=== PATIENT | female | born 1930 | race Caucasian/White ===

== ENCOUNTER 2017-07-09 16:12 | Inpatient (IN) | payer OTHER, MEDICARE ==
[~2017-07-09] VITALS: Ht 154.9 cm; Wt 101.6 kg
[~2017-07-09 16:12] MED LIST: ALLOPURINOL300 M1 PO; ASPIRIN EC325 MG PO; ATORVASTATIN CA10 MG PO; ATORVASTATIN CA40 MG PO; AUGMENTIN 500-1 EACH PO; AUGMENTIN 875875 MG PO; CEPHALEXIN500 M1 PO; CIPROFLOXACIN500 M1 PO; COLCRYS0.6 M1 PO; ECOTRIN81 MG PO; Ecotrin PO; FUROSEMIDE20 M1 PO; GLIPIZIDE ER10 M1 PO; GLIPIZIDE ER5 MG PO; JANUVIA 100MG100 MG PO; KEFLEX500 MG PO; LASIX20 MG PO; LASIX40 MG PO; LIPITOR80 M1 PO; LIPITOR80 MG PO; LOPRESSOR 25MG25 MG PO; METFORMIN HCL500 M2 PO; NORVASC 10MG10 MG PO; PLAVIX 75MG TAB75 MG PO; PLAVIX75 M1 PO; PRINIVIL 5MG5 MG PO; SPIRONOLACTONE25 M1 PO; TOPROL XL25 M1 PO; TRAMADOL HCL50 M1 PO; TRAMADOL50 MG PO; TYLENOL325 M1 PO; ULTRAM(MONOGRAP50 MG PO; URICALM PO; VALSARTAN80 M1 PO; VITAMIN B-122000 MC1 PO; VITAMIN B121000 MCG PO; VITAMIN D31000 IU PO; VITAMIN D32000 UNI1 PO
--- NOTE | 2017-07-09 17:23 | CT SCAN REPORT ---
EXAMINATION: CT HEAD WITHOUT CONTRAST CLINICAL INFORMATION: Fall and hit head. COMPARISON: CT scan of the head 05/15/2017. TECHNIQUE: Contiguous axial imaging was performed from the skull base to vertex without intravenous administration of contrast. DLP: 617.53 mGy-cm FINDINGS: There is no evidence of acute intracranial hemorrhage or territorial infarction. No abnormal mass effect or midline shift is seen. Cuello to white matter differentiation is well preserved. No extra-axial fluid collections are identified. There is commensurate prominence of the ventricles and sulci consistent with moderate diffuse volume loss. There are extensive areas of low attenuation in the periventricular and subcortical white matter, consistent with chronic microvascular ischemic changes. There is encephalomalacia in the right occipital lobe consistent with sequelae of remote infarct. There are areas of low attenuation in the basal ganglia bilaterally consistent with lacunar infarcts. There have been bilateral lens extractions. There are severe degenerative changes of the left temporomandibular joint. There are atheromatous calcifications of the cavernous internal carotid arteries. There are no acute osseous findings. There is a scar in the high right scalp, unchanged. The mastoid air cells and visualized paranasal sinuses are well-aerated. IMPRESSION: 1. There are no acute fractures or bleeds. 2. There is diffuse volume loss and there are extensive chronic microvascular ischemic changes. An area of more acute ischemia cannot be excluded on the basis of this study. 3. 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 There are lacunar infarcts.
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
--- NOTE | 2017-07-09 18:46 | RADIOLOGY REPORT ---
EXAMINATION: RIGHT KNEE 3 VIEWS CLINICAL INFORMATION: Right knee pain after fall. Swelling. COMPARISON: 05/16/2017. TECHNIQUE: AP, lateral, oblique views of the right knee were obtained. FINDINGS: There are no discernible fractures. There is soft tissue swelling anterior to the proximal tibia. There is no knee joint effusion. There is medial and lateral compartment chondrocalcinosis. There is mild narrowing to the medial compartment. IMPRESSION: Soft tissue swelling without discernible fracture.
--- NOTE | 2017-07-09 19:02 | CT SCAN REPORT ---
EXAMINATION: CT CERVICAL SPINE WITHOUT CONTRAST CLINICAL INFORMATION: Pain after fall. COMPARISON: April 2017. TECHNIQUE: Contiguous helical images of the cervical spine were obtained without IV contrast. Multiplanar reconstructions were performed. FINDINGS: The cervical vertebra are in normal alignment. There is mild disc height loss within the lower cervical spine. Disc heights and vertebral heights are otherwise well-preserved. There are no fractures. There is no prevertebral soft tissue swelling. There is no cervical lymphadenopathy. Again identified is a left-sided thyroid macrolobulated thyroid nodule with multiple calcifications. The visualized base of the brain is unremarkable. The visualized lung apices are clear. IMPRESSION: No evidence for acute injury. Mild degenerative change without evidence of acute injury.
--- NOTE | 2017-07-09 19:28 | RADIOLOGY REPORT ---
EXAMINATIONS: PELVIS 1 VIEW AND RIGHT HIP 2 VIEWS CLINICAL INFORMATION: Pain after fall. COMPARISON: None. TECHNIQUE: A supine view of the pelvis is provided. AP neutral and frog-leg lateral views of the right hip are provided. FINDINGS: There are no fractures. Both femoral heads are seated within well-formed acetabula. There is mild medial right hip joint space narrowing. No dysplastic changes are identified. The visualized bowel gas pattern is unremarkable. IMPRESSION: Mild degenerative change without evidence of acute injury.
--- NOTE | 2017-07-09 19:30 | RADIOLOGY REPORT ---
EXAMINATION: RIGHT ANKLE 3 VIEWS CLINICAL INFORMATION: Right ankle pain. COMPARISON: None. TECHNIQUE: AP, lateral, oblique views of the right ankle were obtained. FINDINGS: There is soft tissue swelling about the lateral malleolus. There are no acute fractures. There is no ankle joint effusion. There is a small plantar surface calcaneal spur. IMPRESSION: Soft tissue swelling. No acute fractures. Small calcaneal spur.
[2017-07-09 21:14] LABS: ABSOLUTE BASOPHIL COUNT 0 /CUMM (0.0-0.2); ABSOLUTE EOSINOPHIL COUNT 0.1 /CUMM (0.0-0.7); ABSOLUTE GRANULOCYTE CT 6.9 /CUMM (1.4-6.5); ABSOLUTE LYMPH COUNT 1.9 /CUMM (1.2-3.4); ABSOLUTE MONOCYTE COUNT 0.6 /CUMM (0.10-0.60); BASOPHIL % 0.3 % (0.0-2.0); EOSINOPHIL % 0.6 % (0-5); GRANULOCYTE % 73.2 % (42.2-75.2); HEMATOCRIT 33.5 % (37-47); MEAN CORPUSCULAR HGB 28.6 PG (27.0-31.0); MEAN CORPUSCULAR HGB CONC 32.1 G/DL (33.0-37.0); MEAN CORPUSCULAR VOLUME 89.2 FL (81.0-99.0); MEAN PLATELET VOLUME 7.7 FL (7.4-10.4); PLATELET COUNT 291 /CUMM (130-400); RBC DISTRIBUTION WIDTH 16.1 % (11.5-14.5); RED BLOOD CELL CT 3.75 /CUMM (4.20-5.40); WHITE BLOOD CELL COUNT 9.4 /CUMM (4.8-10.8)
[2017-07-09] MEDS ORDERED: METOPROLOL SUCC25 M1 PO (21:21)
[2017-07-09] MEDS ORDERED: ULTRAM50 M1 PO (21:24)
[2017-07-09] MEDS ORDERED: ASPIRIN81 M4 PO (21:25)
--- NOTE | 2017-07-09 22:15 | History & Physical ---
Ashu LEHMAN,[facility] 07/09/17 2665: General Information and HPI MD Statement: I have seen and personally examined BAL VARGAS and documented this H &P. The patient is a 86 year old F who presented with a patient stated chief complaint of [fall]. Source of Information: patient, family Exam Limitations: no limitations History of Present Illness: The patient is 86-year-old female with past medical history of hyperlipidemia, hypertension, diabetes mellitus, diastolic heart failure (EF 65% in 2016) and COPD. The patient presented to [facility] [facility] ED on 07/09 with presenting complaint of witnessed mechanical fall. As per patient and her daughter she was in usual state of health until last night around 9:30 PM. The patient was walking using walker when she suddenly hit the door and injured R side of her face. Later she fell on ground. In the process, the patient hit back of her head, side of her head, and right knee and right hip. The patient felt too weak to get up or walk The daughter called her neighbor and his son who picked her up and help with her to bed. Her aid came in the morning and try to get her up to walk but she was unable to do so, prompting a visit to ED. The patient did not lose consciousness. There was no jerking movement of the body. No tongue bite no urinary or fecal incontinence. No prodrome, lightheadedness nausea or palpitations/chest pain. Patient's daughter witnessed the whole episode. She is currently complaining of diffuse pain all over her body farhat in R knee. On review of system patient has bilateral lower extremity swelling and reports right knee swelling as well. Allergies/Medications Allergies: Coded Allergies: NO KNOWN ALLERGIES (06/03/12) Home Med list Allopurinol 300 MG TABLET 1 TAB PO DAILY GOUT (Reported) Aspirin (Aspirin*) 81 MG TAB.CHEW 1 TAB PO DAILY PRN HEART (Reported) Atorvastatin Calcium (Lipitor) 80 MG TABLET 1 TAB PO DAILY CHOLESTEROL ( Reported) Clopidogrel Bisulfate (Plavix) 75 MG TABLET 1 TAB PO DAILY BLOOD THINNER ( Reported) Furosemide 20 MG TABLET 1 TAB PO DAILY PRN WATER PILL (Reported) Glipizide (Glipizide ER) 10 MG TAB.ER.24 1 TAB PO DAILY DIABETES (Reported) Reason to Stop at ADM: ON ISS Metformin HCl (Metformin HCl ER) 500 MG TAB.ER.24 2 TAB PO BID DIABETES ( Reported) Reason to Stop at ADM: ON ISS Metoprolol Succinate 25 MG TAB 0.5 TAB PO DAILY HEART (Reported) Tramadol HCl (Ultram) 50 MG TABLET 1 TAB PO BIDP PRN JOINT PAIN (Reported) Valsartan 80 MG TABLET 1 TAB PO DAILY BP (Reported) Past History Travel History Traveled to [place] past 21 day No Medical History Neurological: NONE EENT: NONE Cardiovascular: hypertension, hyperlipidemia, diastolic CHF Respiratory: COPD Gastrointestinal: NONE Hepatic: NONE Renal: urinary incontinence Musculoskeletal: NONE Psychiatric: NONE Endocrine: diabetes THYROIDECTOMY Blood Disorders: NONE Cancer(s): NONE COMMERCIAL SINGER/Reproductive: NONE History of MRSA: No History of VRE: No History of CDIFF: No Surgical History Surgical History: cholecystectomy, THYROIDECTOMY Past Family/Social History Family History Relations & Conditions if any SISTER FH: diabetes mellitus MOTHER FH: cancer FATHER FH: diabetes mellitus FH: heart disease FH: HTN (hypertension) Psychosocial History Where do you live? Home Who Do You Live With? 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 no Functional Ability ADLs Independent: dressing, eating, toileting. Needs Assist: bathing. Ambulation: walker IADLs Needs Assist: shopping, housework, food prep, transportation. Review of Systems Review of Systems Constitutional: Reports: no symptoms. EENTM: Reports: no symptoms. Cardiovascular: Denies: chest pain, orthopena. Respiratory: Reports: no symptoms. GI: Denies: abdominal pain, bloating. Genitourinary: Reports: no symptoms. Musculoskeletal: Reports: back pain, joint pain, joint swelling, muscle pain, muscle stiffness, neck pain. Skin: Reports: no symptoms. Neurological/Psychological: Reports: no symptoms. Exam & Diagnostic Data Last 24 Hrs of Vital Signs/I&O Vital Signs Date Time Temp Pulse Resp B/P B/P Pulse O2 O2 Flow FiO2 Mean Ox Delivery Rate 07/09 2141 98.5 87 19 191/71 99 Room Air 07/09 1622 97.5 82 18 159/75 Room Air Physical Exam General Appearance Alert, Oriented X3, Cooperative Skin No Rashes, No Breakdown HEENT Mucous Membr. moist/pink, bruise on R cheek under the eye Cardiovascular Normal S1, Normal S2, systolic murmur Lungs Clear to Auscultation, Normal Air Movement Abdomen Normal Bowel Sounds, Soft Neurological Normal Speech Extremities R knee swelling limited ROM Vascular Normal Pulses Body Front and Back (Adult) 1) knee swelling Last 24 Hrs of Labs/Festus: Laboratory Tests 07/09/170: Urine Color YEL, Urine Clarity CLEAR, Urine pH 6.0, Ur Specific [place] 1.025, Urine Protein NEG, Urine Ketones NEG, Urine Nitrite NEG, Urine Bilirubin NEG, Urine Urobilinogen 0.2, Ur Leukocyte Esterase NEG, Ur Microscopic EXAM NOT REQUIRED, Urine Hemoglobin NEG, Urine Glucose NEG 07/09/172109: Anion Gap 14, Estimated GFR > 60, BUN/Creatinine Ratio 20.0, Glucose 104 H, Calcium 8.5, Magnesium 1.0 L, Total Bilirubin 0.9, AST 25, ALT 36, Alkaline Phosphatase 76, Total Protein 6.8, Albumin 4.1, Globulin 2.7, Albumin/Globulin Ratio 1.5, CBC w Diff NO MAN DIFF REQ, RBC 3.75 L, MCV 89.2, MCH 28.6, RDW 16.1 H, MPV 7.7, Gran % 73.2, Lymphocytes % 19.9 L, Monocytes % 6.0, Eosinophils % 0.6, Basophils % 0.3, Absolute Granulocytes 6.9 H, Absolute Lymphocytes 1.9, Absolute Monocytes 0.6, Absolute Eosinophils 0.1, Absolute Basophils 0, PUBS MCHC 32.1 L Diagnostic Data Other Results CT HEAD WO IV CONTRAST 1. There are no acute fractures or bleeds. 2. There is diffuse volume loss and there are extensive chronic microvascular ischemic changes. An area of more acute ischemia cannot be excluded on the basis of this study. 3. 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 There are lacunar infarcts. CT CERVICAL SPINE WITHOUT CONTRAST IMPRESSION: No evidence for acute injury. Mild degenerative change without evidence of acute injury. XRY-HIP 2-3 VIEWS, RIGHT IMPRESSION: Mild degenerative change without evidence of acute injury. XRY-KNEE COMPLETE RIGHT IMPRESSION: Soft tissue swelling without discernible fracture. XRY-ANKLE 3 OR MORE VIEWS R IMPRESSION Soft tissue swelling. No acute fractures. Small calcaneal spur. Assessment/Plan Assessment: The patient is 86-year-old female with past medical history of hyperlipidemia, hypertension, diabetes mellitus, diastolic heart failure (EF 65% in 2016) and COPD. The patient presented to [facility] [facility] ED on 07/09 with presenting complaint of witnessed mechanical fall. -VS WNL -Pertinent labs /H 10.8/33 stable, potassium 3.2 magnesium 1 UA clean -Imaging studies dictated above Patient is being admitted to general medicine floor and was being treated and evaluated for following conditions #Witnessed mechanical fall Patient is coming with fall. No syncope, chest pain, palpitations, seizure. Most likely mechanical. -Physical therapy evaluation -Case management -Pain pathway -Ultrasound of the right knee, consider CT and orthopedic consult if worsening of swelling #Hypokalemia and hypomagnesemia -Monitor BP and replete aggressively #Diabetes mellitus -Accu-Cheks hold oral anti-diabetic medication insulin sliding scale #Chronic medical conditions hypertension, hyperlipidemia, TIA continue metoprolol, losartan Lipitor and Plavix FC/DVT prophylaxis with Lovenox/diabetic diet As Ranked By This Provider Problem List: 1. Fall Core Measures/Misc (03/08) Acute Coronary Syndrome ACS Diagnosis: No Congestive Heart Failure Congestive Heart Failure Diagnosis No Cerebrovascular Accident CVA/TIA Diagnosis: No VTE (View Protocol) VTE Risk Factors Age>40 No Mechanical VTE Prophylaxis d/t N/A MechProphylax Ordered No VTE Pharm Prophylaxis d/t NA PharmProphylax ordered Sepsis (View protocol) Sepsis Present: No Shane Garcia 07/09/17 2301: Resident Review Statement Resident Statement: discussed with sourcing intern Other Findings: 86-year-old with past medical history of diabetes type 2, hypertension, gout and TIA presented to ER after having a mechanical fall last night. Daughter is at bedside. According to patient she was trying to walk with walker, tripped and fell down. She denies any dizziness or lightheadedness, chest pain/discomfort, palpitations before fall. She hit her head, right side of face and fell on her right knee. She did not loose consciousness. She felt dizzy after hitting her head. Currently she is complaining of right knee and back pain. She also complains of on and off burning micturition. Denies any fever, chills. Other review of systems negative. Upon arrival to ER temperature was 97.5, pulse 82, respiratory rate 18, blood pressure 159/75 and oxygen saturation 99% on room air. Pertinent physical exam findings: She is alert, awake and oriented. Small bruise on the right side of her face. Heart regular rate and rhythm with a systolic murmur grade 4/6. Lungs clear. Tenderness on palpation of lumbar and cervical spine. No obvious bruise or overlying skin changes. Right knee is swollen, bruised, warm and tender. Restricted range of motion due to pain. Pertinent labs her H&H 10.8/33.5, potassium 3.2, magnesium 1. UA normal Head CT did not show any acute fractures or bleeds. Extensive chronic microvascular ischemic changes. Cervical spine CT did not show any evidence of acute injury. Right hip x-ray showed mild degenerative changes without evidence of acute injury Right knee x-ray showed soft tissue swelling without Fracture. Right ankle x-ray showed soft tissue swelling and no acute fracture Problem list 1. Mechanical fall and physical deconditioning 2. Electrolyte abnormalities Plan * Admission to general med * Vitals every shift * Replete electrolytes and check levels tomorrow * Pain management with IV Tylenol and tramadol * Will consider Doppler venous ultrasound of right lower extremity to rule out DVT * Physical therapy evaluation and treatment in a.m. * We'll continue all home medication except glipizide and metformin * Accu-Cheks. NovoLog sliding scale before each meal * DVT prophylaxis * Regular diet * Full code Soto LEHMAN, [facility] 07/09/17 2353: Attending MD Review Statement Attending Statement Attending MD Statement: examined this patient, discuss w/resident/PA/ROUTER MACHINE OPERATOR, agreed w/resident/PA/ROUTER MACHINE OPERATOR, discussed with family, reviewed images, amended to note Attending Assessment/Plan: 86 yo F with h/o HTN, T2DM, TIA, diastolic CHF, is brought in from home after a mechanical fall last night. Daughter at bedside provides history. Patient was walking with her walker when she tripped and fell face forward and broke the fall on her right knee. Daughter witnessed the fall. Patient had head strike and reports mild dizziness post fall, no LOC. Daughter had her friends get patient off the floor to the bed overnight. However, this morning, visiting nurse attempted to walk but she was a max assist and had difficulty ambulating. She c/ o diffuse pains over her right half of face, right knee and back pain. Of note, patient c/o dysuria intermittently over past 2 weeks. Denies hematuria or urinary frequency, she is incontinent. Vitals stable. Exam: AAO, Bruise noted to right infra-orbital and maxillary region, bruise with diffuse swelling of the right knee is noted compared to left knee. Right knee is tender with limited ROM. Otherwise unremarkable exam. Labs: K 3.2, Mag 1.0, UA neg. Head CT: chronic lacunar infarcts and posterior cerebral artery infarct. Cervical spine: no injury. Right knee Xray: soft tissue swelling without discernible fracture, medial and lateral compartment chondrocalcinosis. Right ankle Xray: soft tissue swelling, no fracture. Right hip Xray: mild degenerative change. EKG: Sinus rhythm, no acute changes. Echo (2017): EF 60-65%. Assessment and plan: 1. Mechanical fall 2. Right knee pain and swelling 3. Gait instability, inability to ambulate 4. Hypomagnesemia, hypokalemia 5. Type 2 diabetes - Admit to general medicine - Fall precautions - Pain management with IV tylenol and PO tramadol - No opiate medications - Obtain right knee/ lower extremity ultrasound to rule out DVT and assess for any knee effusion or collection - If right knee swelling worsens, consider CT imaging and Ortho consult - PT eval, eventual placement - Replete electrolytes Mag > 2.0 and K > 4.0 - Although patient c/o intermittent dysuria, her UA is clear, will watch off antibiotics. DVT ppx Lovenox. Full code
--- NOTE | 2017-07-09 23:04 | Admission Certification ---
Admission Certification Certification Statement - As attending physician, I certify that at the time of - admission, based on clinical presentation, severity of - symptoms, need for further diagnostic testing and - therapeutic interventions, and risk of adverse outcomes - without in-hospital treatment, in my clinical assessment, - this patient requires an acute hospital stay for a minimum - of two nights or longer. I have also considered psychsocial - factors such as support system, advanced age, financial - issues, cognitive issues, and failed out-patient treatments, - past re-admission history, safety of patient, and lack of - compliance as applicable. Specific rationale supporting this admission is: Fall, right knee pain, gait instability.
[2017-07-09 23:35] VITALS: BP 128/78
[2017-07-10 06:09] VITALS: BP 144/78
--- NOTE | 2017-07-10 11:45 | ULTRASOUND REPORT ---
EXAMINATION: US TRIPLEX LOWER EXTREMITY, RIGHT CLINICAL INFORMATION: Right lower extremity swelling COMPARISON: 04/14/2017 TECHNIQUE: Color-flow triplex imaging with spectral analysis and compression Doppler were performed on the lower extremity. FINDINGS: Respiratory variation, normal compression and augmented flow are noted throughout the lower extremity. The visualized common femoral vein, superficial femoral vein, profunda femoral vein, popliteal vein and midcalf peroneal and posterior tibial venous segments show no evidence of deep venous thrombosis. A Munoz's cyst is present. IMPRESSION: No evidence of deep venous thrombosis involving the lower extremity. A Munoz's cyst is present.
--- NOTE | 2017-07-10 12:51 | PN- Housestaff ---
Kimo LEHMAN,[facility] 07/10/17 1251: Subjective Follow-up For: Mechanical fall Subjective: No acute events overnight. Patient was sleeping comfortably. States she has no pain from her fall. Review of Systems Constitutional: Reports: no symptoms. Cardiovascular: Reports: no symptoms. Respiratory: Reports: no symptoms. Gastrointestinal: Reports: no symptoms. Genitourinary: Reports: no symptoms. Musculoskeletal: Reports: see HPI. Objective Last 24 Hrs of Vital Signs/I&O Vital Signs Date Time Temp Pulse Resp B/P B/P Pulse O2 O2 Flow FiO2 Mean Ox Delivery Rate 07/10 1452 98.2 76 20 100/62 94 Room Air 07/10 1230 Room Air 07/10 0927 84 140/76 07/10 0926 84 140/76 07/10 0609 98.5 89 20 144/78 93 Room Air 07/09 2335 97.8 78 20 128/78 95 Room Air 07/09 2246 97.9 78 20 165/79 97 Intake & Output 07/10 1600 07/10 0800 07/10 0000 Intake Total 600 500 Output Total 300 100 Balance 300 500 -100 Intake, IV 20 Intake, Oral 600 480 Number 0 Bowel Movements Output, Urine 300 100 Patient 225 lb Weight Weight Bed scale Measurement Method Physical Exam General Appearance: Alert, Cooperative, No Acute Distress Cardiovascular: systolic murmur Lungs: Clear to Auscultation, Normal Air Movement Abdomen: Normal Bowel Sounds, Soft, No Tenderness Extremities: RLE slightly warmer than L, RLE tender to palpation cap refill <2 seconds Vascular: 2+ radial pulses Current Medications: Current Medications Sig/[place] Start time Last Medication Dose Route Stop Time Status Admin Acetaminophen 1,000 MG Q6P PRN 07/090 AC IV Allopurinol 300 MG DAILY 07/10 1000 AC 07/10 PO 0927 Aspirin 81 MG DAILY PRN 07/10 1930 DC PO Atorvastatin Calcium 80 MG 1700 07/10 1700 AC 07/10 PO 1642 Clopidogrel Bisulfate 75 MG DAILY 07/10 1000 AC 07/10 PO 09 Enoxaparin Sodium 40 MG DAILY 07/10 1000 AC 07/10 SC 09 Furosemide 20 MG DAILY PRN 07/10 1930 DC PO Insulin Aspart 0 TIDAC 07/10 0800 AC SC Losartan Potassium 50 MG DAILY 07/10 1000 AC 07/10 PO 09 Magnesium Chloride 64 MG ONCE ONE 07/10 1900 DC 07/10 PO 07/10 190 2106 Magnesium Oxide 400 MG BID 07/10 1446 DC 07/10 PO 07/10 2200 210 Metoprolol Succinate 12.5 MG DAILY 07/10 1000 AC 07/10 PO 0927 Potassium Chloride 40 MEQ ONCE ONE 07/10 1500 DC 07/10 PO 07/10 1501 1643 Potassium Chloride 0 .STK-MED ONE 07/09 2303 DC PO Tramadol HCl 50 MG Q6 PRN 07/09 2200 AC 07/10 PO 1149 Last 24 Hrs of Lab/Festus Results Last 24 Hrs of Labs/Mics: Laboratory Tests 07/10/17 0715: Anion Gap 13, Estimated GFR > 60, BUN/Creatinine Ratio 16.7, Magnesium 1.1 L Assessment/Plan Assessment: The patient is 86-year-old female with past medical history of hyperlipidemia, hypertension, diabetes mellitus, diastolic heart failure (EF 65% in 2016) and COPD. The patient presented to [place] ED on 07/09 with presenting complaint of witnessed mechanical fall. #Witnessed mechanical fall Ct head reveals old uptwist spinner infart and lacunar infarcts Ct cervical spine negative for any acute fracutres. R knee XR and ankle xray reveal soft tissue swelling Hip xray negative for any acute fractures RLE veouns doppler : No evidence of deep venous thrombosis involving the lower extremity. A Munoz's cyst is present. -Physical therapy recommends STR -Pain control #Hypokalemia and hypomagnesemia K 3.2 -> 3.5 Mg 1.0 -> 1.1 -Monitor BP and replete as needed #Diabetes mellitus -Accu-Cheks hold oral anti-diabetic medication insulin sliding scale #Chronic medical conditions hypertension, hyperlipidemia, TIA -continue metoprolol, losartan Lipitor and Plavix FC/DVT prophylaxis with Lovenox/diabetic diet Problem List: 1. Hypomagnesemia 2. Hypokalemia 3. Fall Pain Ratin Pain Location: none Pain Goal: Pain 4 or less Pain Plan: pain pathway Tomorrow's Labs & Rationales: cbc bep mg NakulValentin barraza 07/10/17 1341: Attending Review Statement Attending Statement Attending MD Statement: examined this patient, discuss w/resident/PA/PHYS THERAPIST, agreed w/resident/PA/PHYS THERAPIST, discussed with family, reviewed EMR data (avail), discussed with nursing, discussed with case mgmt, reviewed images, amended to note Attending Assessment/Plan: Patient here for mechanical fall and general physical deconditioning. PT eval recommended STR. Patient no acute fracture. Patient had hypokalemia on admission which got better this morning. Cont current care..
--- NOTE | 2017-07-10 13:46 | Discharge Summary ---
Visit Information Visit Dates Admission Date: 07/09/17 Discharge Date: 07/15/17 Hospital Course Course Attending Physician: Valentin Mota MD Primary Care Physician: Ruthy Nelson MD.[facility] Course: 86 yo F with h/o HTN, T2DM, TIA, diastolic CHF, is brought in from home after a mechanical fall last night. Daughter at bedside provides history. Patient was walking with her walker when she tripped and fell face forward and broke the fall on her right knee. Daughter witnessed the fall. Patient had head strike and reports mild dizziness post fall, no LOC. Daughter had her friends get patient off the floor to the bed overnight. However, this morning, visiting nurse attempted to walk but she was a max assist and had difficulty ambulating. She c/ o diffuse pains over her right half of face, right knee and back pain. Of note, patient c/o dysuria intermittently over past 2 weeks. Denies hematuria or urinary frequency, she is incontinent. Vitals stable. Exam: AAO, Bruise noted to right infra-orbital and maxillary region, bruise with diffuse swelling of the right knee is noted compared to left knee. Right knee is tender with limited ROM. Otherwise unremarkable exam. Labs: K 3.2, Mag 1.0, UA neg. Head CT: chronic lacunar infarcts and posterior cerebral artery infarct. Cervical spine: no injury. Right knee Xray: soft tissue swelling without discernible fracture, medial and lateral compartment chondrocalcinosis. Right ankle Xray: soft tissue swelling, no fracture. Right hip Xray: mild degenerative change. Head CT did not show any acute fractures or bleeds. Extensive chronic microvascular ischemic changes. Cervical spine CT did not show any evidence of acute injury. EKG: Sinus rhythm, no acute changes. Echo (2017): EF 60-65%. Assessment and plan: 1. Mechanical fall 2. Dysuria with positive urien cultures for gram positivie cocci 3. Gait instability, inability to ambulate 4. Hypomagnesemia, hypokalemia - resolved 5. Type 2 diabetes Admitted to general medicine floor Witnessed Mechanical fall Probably secondary to gait instability and deconditioning. PT evaluated and recommended STR. As she had significant bruising and pain in the right knee/ ankle region, provided with IV tylenol and PO tramadol (avoided opiates given elderly). Xray ruled out acute fractures. Lethargy/drowsiness in the morning Patient is lethargic over weekend and found to be unable to sleep well during night making her more drowsy during day time. Another reason could be urinary infection. Family reports that she is even altered at baseline usually. Electrolyte abnormalities - Hypokalemia and hypomagnesemia Repleted. History of diastolic failure Losartan 50mg daily (valsartan 80 at home), metoprolol succinate 12.5mg daily, furosemide 20mg daily. Urinary tract infection She had Dysuria with urine cultures growing Gram positive cocci.As she is symtomatic and cultures were positive - started on augementin for a total of 7 days after a single dose of ceftriaxone. History of TIA Continue ASA 81mg, plavix, Atrovastatin 80mg DM - type 2 Accuchecks with insulin sliding scale. Sugars controlled - holding metformin and glipizide DVT prophylaxis SC lovenox Code status full code Complications: None Allergies: Coded Allergies: NO KNOWN ALLERGIES (06/03/12) Significant Procedures: Head CT IMPRESSION: 1. There are no acute fractures or bleeds. 2. There is diffuse volume loss and there are extensive chronic microvascular ischemic changes. An area of more acute ischemia cannot be excluded on the basis of this study. 3. 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 There are lacunar infarcts. Knee Xray IMPRESSION: Soft tissue swelling without discernible fracture. Ankle Xray IMPRESSION: Soft tissue swelling. No acute fractures. Small calcaneal spur. Cervical spine CT IMPRESSION: No evidence for acute injury. Mild degenerative change without evidence of acute injury. Hip Xray IMPRESSION: Mild degenerative change without evidence of acute injury. Venous doppler study IMPRESSION: No evidence of deep venous thrombosis involving the lower extremity. A Munoz's cyst is present. Pertinent Lab Results: as above Disposition Summary Disposition Principal Diagnosis: Mechanical fall Additional Diagnosis: Gait instability, inability to ambulate Electrolyte abnormalities - Hypomagnesemia, hypokalemia Type 2 diabetes Urine cultures positive for gram positive cocci Discharge Disposition: short term rehab Discharge Instructions General Discharge Information Code Status: Full Code Patient's Diet: Regular diet Patient's Activity: as tolerated Follow-Up Instructions/Appts: Please follow up with your PCP in a week Medications at Discharge Discharge Medications: Continue taking these medications: Metformin HCl (Metformin HCl ER) 500 MG TAB.ER.24 2 Tablet ORAL TWICE DAILY Instructions: Reason to Stop at ADM: ON ISS Comments: NOT GIVEN IN HOSPITAL Allopurinol (Allopurinol) 300 MG TABLET 1 Tablet ORAL DAILY Comments: LAST GIVEN 07/15/17 @ 1200 Valsartan (Valsartan) 80 MG TABLET 1 Tablet ORAL DAILY Qty = 30 Comments: Last Taken: 04/17/17 Time: 9AM PT GIVEN VALSARTAN Glipizide (Glipizide ER) 10 MG TAB.ER.24 1 Tablet ORAL DAILY Qty = 90 Instructions: Reason to Stop at ADM: ON ISS Comments: NOT GIVEN IN HOSPITAL Atorvastatin Calcium (Lipitor) 80 MG TABLET 1 Tablet ORAL DAILY Qty = 30 Comments: LAST GIVEN 07/14/17 @ 1700 Furosemide (Furosemide) 20 MG TABLET 1 Tablet ORAL DAILY as needed for WATER PILL Qty = 15 Comments: Last Taken: 04/14/17 Time: 9PM Clopidogrel Bisulfate (Plavix) 75 MG TABLET 1 Tablet ORAL DAILY Comments: LAST GIVEN 07/15/17 @ 1200 Metoprolol Succinate (Metoprolol Succinate) 25 MG TAB 0.5 Tablet ORAL DAILY Comments: LAST GIVEN 07/15/17 @ 1200 Tramadol HCl (Ultram) 50 MG TABLET 1 Tablet ORAL 2 x Daily as needed as needed for JOINT PAIN Aspirin (Aspirin*) 81 MG TAB.CHEW 1 Tablet ORAL DAILY as needed for HEART Start taking the following new medications: Amoxicillin/Clavulanate Potass (Amox-Clav 875-125 MG Tablet) 875 MG-125 MG TABLET 1 Tablet ORAL EVERY 12 HOURS Qty = 6 No Refills Comments: LAST GIVEN 07/15/17 2 1200 Docusate Sodium (Docusate Sodium) 100 MG CAPSULE 1 Tablet ORAL TWICE DAILY as needed for CONSTIPATION Qty = 30 No Refills Comments: LAST GIVEN 07/15/17 @ 1200 Polyethylene Glycol 3350 (Miralax) 17 GRAM/DOSE POWDER 17 Gram ORAL DAILY as needed for CONSTIPATION Qty = 1 No Refills Comments: LAST GIVEN 07/15/17 @ 1200 Sennosides/Docusate Sodium (Senna-Time S Tablet) 8.6 MG-50 MG TABLET 1 Tablet ORAL AT BEDTIME as needed for CONSTIPATION Qty = 30 No Refills Copies To: Gil Nleson MD Attending MD Review Statement Documenting Attending: Valentin Mota MD Other Findings: Patient seen/examined bedside. care taker previuosly confirmed she is fluctuating mental status at baseline. CT head x2 negative for acute abnormality. Dysphagia f/u Speech/swallow recs mechanical soft consistency liquid. 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 On plavix and statin at home. Her urine culture is GPC started on oral antibiotic for UTI. Patient here for mechanical fall and general physical deconditioning. PT eval recommended STR. Patient no acute fracture. Patient had hypokalemia on admission which is improved with supplementation. Constipation bowel regimen, pain control, had bowel movement: resolved anticipate dc to STR today. Advance diet as tolerated at facility. FOLLOW UP PCP in 3-5 days of discharge.
--- NOTE | 2017-07-10 14:06 | PN- Student ---
Subjective Subjective: FULL STUDENT NOTE CC: Fall HPI: 86 yo F hospital day 2 presented to the ED with a chief complaint of fall witnessed by the patients daughter. PMHx significant for HLD, HTN, DM2, TIA/CVA , Diastolic heart failure (EF 65%), COPD. Thursday night patient was walking with her walker when she lost her balance, hit the door and injured the right side of her face. She then fell to the ground, hitting the back and side of her head as well as her right hip and knee. Denies any LOC, sxs of seizure or syncopal prodrome bedore the fall. She was unable to stand up alone, and had to lifted into bed. The next day she was unable to ambulate with the help of her aid and presented to ED. This morning the patient states she overall feels well but did not sleep well due to the noise on the unit. Otherwise, she denies headache, dizziness, chest pain, n/v. PMHx: HLD, HTN, DM2, Diastolic heart failure (EF 65%), COPD PSHx: Cholecystectomy and thyroidectomy SH: Denies ETOH, smoking, or recreational drug use. Lives at home with daughter and son FH: SISTER: diabetes mellitus MOTHER: cancer FATHER: diabetes mellitus, CVD, HTN ROS: Constitutional: Reports: no symptoms. EENTM: Reports: no symptoms. Cardiovascular: Denies: chest pain, orthopena. Respiratory: Reports: no symptoms. GI: Denies: abdominal pain, bloating. Genitourinary: Reports: no symptoms. Musculoskeletal: Reports: back pain, joint pain, joint swelling, muscle pain, muscle stiffness, neck pain. Skin: Reports: no symptoms. Neurological/Psychological: Reports: no symptoms. Objective Objective: Vital Signs Date Time Temp Pulse Resp B/P B/P Pulse O2 O2 Flow FiO2 Mean Ox Delivery Rate 07/10 1230 Room Air 07/10 0927 84 140/76 07/10 0926 84 140/76 07/10 0609 98.5 89 20 144/78 93 Room Air 07/09 2335 97.8 78 20 128/78 95 Room Air 07/09 2246 97.9 78 20 165/79 97 07/09 2141 98.5 87 19 191/71 99 Room Air 07/09 1622 97.5 82 18 159/75 Room Air Intake & Output 07/10 1600 07/10 0800 07/10 0000 Intake Total 500 Output Total 100 Balance 500 -100 Intake, IV 20 Intake, Oral 480 Number 0 Bowel Movements Output, Urine 100 Patient 225 lb Weight Weight Bed scale Measurement Method Appearance: Patient appeared tired but became alert with prompting, oriented. NAD. HEENT: PEERL Cardiovascular: RRR, systolic murmur 08/25 Pulmonary: Clear to ausculation, no adventitious sounds present Abdomen: Normoactive bowel sounds, soft to palpation, no TTP or rigidity present Extremities: R knee was tender to palpation, with minimal swelling. Diminished ROM. Neuro: Speech is clear and intact. Current Medications Sig/Chaparro Start time Last Medication Dose Route Stop Time Status Admin Acetaminophen 1,000 MG Q6P PRN 07/09 220 AC IV Allopurinol 300 MG DAILY 07/10 1000 AC 07/10 PO 0927 Atorvastatin Calcium 80 MG 1700 07/10 1700 AC PO Clopidogrel Bisulfate 75 MG DAILY 07/10 1000 AC 07/10 PO 0927 Enoxaparin Sodium 40 MG DAILY 07/10 1000 AC 07/10 SC 0927 Insulin Aspart 0 TIDAC 07/10 0800 AC SC Losartan Potassium 50 MG DAILY 07/10 1000 AC 07/10 PO 0926 Magnesium Oxide 400 MG ONE ONE 07/09 2145 DC 07/09 PO 07/09 214 2303 Magnesium Sulfate 1 GM Q2H 07/09 2200 CAN Dextrose/Water 100 ML IV 07/10 0159 Metoprolol Succinate 12.5 MG DAILY 07/10 1000 AC 07/10 PO 0927 Potassium Chloride 0 .STK-MED ONE 07/09 2303 DC PO Potassium Chloride 60 MEQ ONCE ONE 07/09 2200 CAN PO 07/09 220 Potassium Chloride 40 MEQ ONCE ONE 07/09 2145 DC 07/09 PO 07/09 2146 2303 Tramadol HCl 50 MG Q6 PRN 07/09 2200 AC 07/10 PO 1149 Results Results: Laboratory Tests 07/10/17 0715: Anion Gap 13, Estimated GFR > 60, BUN/Creatinine Ratio 16.7, Magnesium 1.1 L 07/09/172149: Urine Color YEL, Urine Clarity CLEAR, Urine pH 6.0, Ur Specific [place] 1.025, Urine Protein NEG, Urine Ketones NEG, Urine Nitrite NEG, Urine Bilirubin NEG, Urine Urobilinogen 0.2, Ur Leukocyte Esterase NEG, Ur Microscopic EXAM NOT REQUIRED, Urine Hemoglobin NEG, Urine Glucose NEG 07/09/172109: Anion Gap 14, Estimated GFR > 60, BUN/Creatinine Ratio 20.0, Glucose 104 H, Calcium 8.5, Magnesium 1.0 L, Total Bilirubin 0.9, AST 25, ALT 36, Alkaline Phosphatase 76, Total Protein 6.8, Albumin 4.1, Globulin 2.7, Albumin/Globulin Ratio 1.5, CBC w Diff NO MAN DIFF REQ, RBC 3.75 L, MCV 89.2, MCH 28.6, RDW 16.1 H, MPV 7.7, Gran % 73.2, Lymphocytes % 19.9 L, Monocytes % 6.0, Eosinophils % 0.6, Basophils % 0.3, Absolute Granulocytes 6.9 H, Absolute Lymphocytes 1.9, Absolute Monocytes 0.6, Absolute Eosinophils 0.1, Absolute Basophils 0, PUBS MCHC 32.1 L Diagnostic Imaging Head CT: no acute fractures or bleeds. Extensive chronic microvascular ischemic changes. Cervical spine CT: no evidence of acute injury. Right hip x-ray: mild degenerative changes without evidence of acute injury Right knee x-ray: soft tissue swelling without Fracture. Right ankle x-ray: soft tissue swelling and no acute fracture US-UNILATERAL VENOUS DOPPLER: No evidence of deep venous thrombosis involving the lower extremity. A Munoz's cyst is present. Assessment/Plan Assessment: 86 yo F hospital day 2 presented to the ED with a chief complaint of fall witnessed by the patients daughter. PMHx significant for HLD, HTN, DM2, CVA/TIA , Diastolic heart failure (EF 65%), COPD. Thursday night patient was walking with her walker when she lost her balance, hit the door and injured the right side of her face. She then fell to the ground, hitting the back and side of her head as well as her right hip and knee. Plan: 1. Fall * Fall most likely mechanical. No evidence of underlaying patholgy such as a syncopal episode, seizure, delirium, or other muskuloskeletal or neruologic deficiencies. * Head CT: no acute fractures or bleeds. Extensive chronic microvascular ischemic changes. * Cervical spine CT: no evidence of acute injury. * Right hip x-ray: mild degenerative changes without evidence of acute injury * Right knee x-ray: soft tissue swelling without Fracture. * Right ankle x-ray: soft tissue swelling and no acute fracture * US-UNILATERAL VENOUS DOPPLER: No evidence of deep venous thrombosis involving the lower extremity. A Munoz's cyst is present. * PT consult to assess ambulatory stability. 2. Chronic Conditions * DM2: Novolog (sliding scale) TIDAC sc * HTN: Losartan, Metoprolol 12.5 mg daily PO * Gout: Allopurinol 300 mg daily PO * HLD: Lipitor 80 mg PO * TIA/CVA: Clopidogrel 75 mg PO 3. Electrolyte Imbalance (Low K+ and Mg+) * K 3.2 --> 3.5 with KCl 40 MEQ PO * Mg 1.0 --> 1.1 with Magnesium oxide 400mg PO 4. Pain Management * Tramadol HCl 50 mg q6 PRN PO * Acetominophen 1g q6hr PRN IV 5. DVT Prophylaxis * Lovenox 40 mg daily sc
[2017-07-10 14:52] VITALS: BP 100/62
--- NOTE | 2017-07-10 14:57 | Patient Discharge Instructions ---
Discharge Instructions General Discharge Information Special Instructions: Please follow up with your pcp. Please take your medications as perscribed. Diet Continue normal diet: No Recommended Diet: Ground mechanical soft and thin liquids Acute Coronary Syndrome Inclusion Criteria At DC or during hospital stay patient has or had the following: ACS DIAGNOSIS No Discharge Core Measures Meds if any: Prescribed or Continued at Discharge Meds if any: NOT Prescribed or Continued at Discharge Congestive Heart Failure Inclusion Criteria At DC or during hospital stay patient has or had the following: CHF DIAGNOSIS No Discharge Core Measures Meds if any: Prescribed or Continued at Discharge Meds if any: NOT Prescribed or Continued at Discharge Cerebrovascular accident Inclusion Criteria At DC or during hospital stay patient has or had the following: CVA/TIA Diagnosis No Discharge Core Measures Meds if any: Prescribed or Continued at Discharge Meds if any: NOT Prescribed or Continued at Discharge Venous thromboembolism Inclusion Criteria VTE Diagnosis No VTE Type NONE VTE Confirmed by (Test) NONE Discharge Core Measures - Per Current guidelines, there needs to be overlap - treatment for the first 5 days of Warfarin therapy. - If discharged on Warfarin prior to 5 days of - overlap therapy, the patient will need to be - assessed for post discharge needs including - *Post discharge parental anticoagulation - *Warfarin and/or parental anticoagulation education - *Follow up date to check INR post discharge At least 5 days overlap therapy as Inpatient No Meds if any: Prescribed or Continued at Discharge Note: Overlap Therapy is Warfarin and Anticoagulant Meds if any: NOT Prescribed or Continued at Discharge
[2017-07-10 22:51] VITALS: BP 160/90
[2017-07-11 06:37] VITALS: BP 164/78
[2017-07-11 08:29] LABS: ABSOLUTE BASOPHIL COUNT 0 /CUMM (0.0-0.2); ABSOLUTE EOSINOPHIL COUNT 0 /CUMM (0.0-0.7); ABSOLUTE GRANULOCYTE CT 6.5 /CUMM (1.4-6.5); ABSOLUTE LYMPH COUNT 1.3 /CUMM (1.2-3.4); ABSOLUTE MONOCYTE COUNT 0.7 /CUMM (0.10-0.60); BASOPHIL % 0.2 % (0.0-2.0); EOSINOPHIL % 0.3 % (0-5); GRANULOCYTE % 76.5 % (42.2-75.2); HEMATOCRIT 31.6 % (37-47); MEAN CORPUSCULAR HGB 29.2 PG (27.0-31.0); MEAN CORPUSCULAR HGB CONC 32.6 G/DL (33.0-37.0); MEAN CORPUSCULAR VOLUME 89.5 FL (81.0-99.0); MEAN PLATELET VOLUME 8.3 FL (7.4-10.4); PLATELET COUNT 251 /CUMM (130-400); RBC DISTRIBUTION WIDTH 16.2 % (11.5-14.5); RED BLOOD CELL CT 3.54 /CUMM (4.20-5.40); WHITE BLOOD CELL COUNT 8.6 /CUMM (4.8-10.8)
--- NOTE | 2017-07-11 08:54 | PN- Housestaff ---
Carlo LEHMAN,Nikki 07/11/17 0854: Subjective Follow-up For: mechanical fall witnessed Subjective: patient seen today. she is much more somnolent than other days. she was upbeat and energeticthe other days and today she barely answers questions. She is AOx3. Additionally her right hand is much more painful than it has been. appanrely, according to the daughter she partially fell on it. no workup has been done on the knee. Her appetite has also been lacking. Patient will go to [facility] when ready. Review of Systems Constitutional: Reports: no symptoms. Cardiovascular: Reports: no symptoms. Respiratory: Reports: no symptoms. Gastrointestinal: Reports: no symptoms. Musculoskeletal: Reports: joint pain (right hand). Objective Last 24 Hrs of Vital Signs/I&O Vital Signs Date Time Temp Pulse Resp B/P B/P Pulse O2 O2 Flow FiO2 Mean Ox Delivery Rate 07/11 2327 97.8 92 16 128/72 96 Room Air 07/11 2126 97.8 92 18 128/72 96 Room Air 07/11 1423 98.3 85 20 145/80 93 Room Air 07/11 0806 81 164/78 07/11 0806 81 164/78 07/11 0637 98.2 81 20 164/78 92 Intake & Output 07/12 0800 07/12 0000 07/11 1600 Intake Total 480 800 Output Total Balance 480 800 Intake, Oral 480 800 Number 0 Bowel Movements Output, Stool Physical Exam General Appearance: Alert, No Acute Distress Cardiovascular: Regular Rate, Normal S1, Normal S2, No Murmurs Lungs: mild wheezes Abdomen: Normal Bowel Sounds, Soft, No Tenderness Current Medications: Current Medications Sig/Chaparro Start time Last Medication Dose Route Stop Time Status Admin Acetaminophen 1,000 MG Q6P PRN 07/09 2200 AC IV Allopurinol 300 MG DAILY 07/10 1000 AC 07/11 PO 0806 Atorvastatin Calcium 80 MG 1700 07/10 1700 AC 07/11 PO 1645 Clopidogrel Bisulfate 75 MG DAILY 07/10 1000 AC 07/11 PO 0806 Docusate Sodium 100 MG BID 07/11 1402 AC 07/11 PO 2116 Enoxaparin Sodium 40 MG DAILY 07/10 1000 AC 07/11 SC 0806 Insulin Aspart 0 TIDAC 07/10 0800 AC 07/11 SC 1210 Losartan Potassium 50 MG DAILY 07/10 1000 AC 07/11 PO 08 Magnesium Oxide 400 MG BID 07/11 1348 DC 07/11 PO 07/11 Metoprolol Succinate 12.5 MG DAILY 07/10 1000 AC 07/11 PO 08 Polyethylene Glycol 17 GM DAILY 07/11 1402 AC 07/11 PO 1644 Senna 187 MG AT BEDTIME 07/11 2199 AC 07/11 PO 2115 Tramadol HCl 50 MG Q6 PRN 07/09 2199 DC 07/11 PO 08 Last 24 Hrs of Lab/Festus Results Last 24 Hrs of Labs/Mics: Laboratory Tests 07/11/17 0655: Anion Gap 14, Estimated GFR > 60, BUN/Creatinine Ratio 16.7, Magnesium 1.4 L, CBC w Diff NO MAN DIFF REQ, RBC 3.54 L, MCV 89.5, MCH 29.2, RDW 16.2 H, MPV 8.3, Gran % 76.5 H, Lymphocytes % 15.0 L, Monocytes % 8.0, Eosinophils % 0.3, Basophils % 0.2, Absolute Granulocytes 6.5, Absolute Lymphocytes 1.3, Absolute Monocytes 0.7 H, Absolute Eosinophils 0, Absolute Basophils 0, PUBS MCHC 32.6 L Assessment/Plan Assessment: The patient is 86-year-old female with past medical history of hyperlipidemia, hypertension, diabetes mellitus, diastolic heart failure (EF 65% in 2016) and COPD. The patient presented to [place] ED on 07/09 with presenting complaint of witnessed mechanical fall. 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 R knee XR and ankle xray reveal soft tissue swelling Hip xray negative for any acute fractures RLE veouns doppler : No evidence of deep venous thrombosis involving the lower extremity. A Munoz's cyst is present. -Physical therapy recommends STR -Pain control -patient states right wrist hurts. no xray done so we put in 3 view xray right hand. #lethargy patient was somnolent. we did cxr blood cultures taken day before no increased oxygen demand, no leukocytosis, not febrile #Hypokalemia and hypomagnesemia K 3.2 -> 3.5 Mg 1.0 -> 1.1 we repleted again both Mg and K. -Monitor BP and replete as needed #Diabetes mellitus -Accu-Cheks hold oral anti-diabetic medication insulin sliding scale #Chronic medical conditions hypertension, hyperlipidemia, TIA -continue metoprolol, losartan Lipitor and Plavix FC/DVT prophylaxis with Lovenox/diabetic diet Problem List: 1. Hypomagnesemia 2. Hypokalemia 3. Fall 4. Weakness 5. Wrist pain Pain Ratin Pain Location: right hand Pain Goal: Pain 4 or less Pain [facility] Labs & Rationales: cbcbep Valentin Mota 07/11/17 1316: Attending MD Review Statement Attending Statement Attending MD Statement: examined this patient, discuss w/resident/PA/ASSISTANT FAMILY TEACHER, agreed w/resident/PA/ASSISTANT FAMILY TEACHER, discussed with family, reviewed EMR data (avail), discussed with nursing, discussed with case mgmt, reviewed images, amended to note Attending Assessment/Plan: Patient here for mechanical fall and general physical deconditioning. PT eval recommended STR. Patient no acute fracture. Patient had hypokalemia on admission which is improved with supplementation, bowel regimen, pain control, monitor bowel movement. Cont current care..anticipate dc to STR.
[2017-07-11 14:23] VITALS: BP 145/80
--- NOTE | 2017-07-11 18:43 | RADIOLOGY REPORT ---
EXAMINATION: XR HAND, RIGHT CLINICAL INFORMATION: Possible hand injury. Right hand pain. COMPARISON: None TECHNIQUE: PA, lateral, and oblique views of the right hand. FINDINGS: Moderate diffuse osteopenia is noted involving all the visualized bones. Moderate osteoarthrosis is noted at the 1st carpometacarpal joint. Mild osteoarthrosis is noted at the interphalangeal joints of all the fingers. No radiographic evidence of any superimposed fracture or dislocation present. The soft tissues are unremarkable. IMPRESSION: No radiographic evidence of any acute displaced fracture or subluxation or dislocation.
--- NOTE | 2017-07-11 19:41 | RADIOLOGY REPORT ---
EXAMINATION: XR PORTABLE CHEST CLINICAL INFORMATION: Concern for pneumonia. COMPARISON: Chest radiograph 05/16/2017. TECHNIQUE: Portable frontal view of the chest was obtained. FINDINGS: Minimal left basilar airspace opacity is nonspecific. No pleural effusion. Cardiomediastinal silhouette and pulmonary vasculature are within normal limits given AP technique. No acute osseous findings. IMPRESSION: Minimal left basilar airspace opacity favors mild atelectasis rather than early infiltrate. Consider two-view chest for further evaluation.
[2017-07-11 21:26] VITALS: BP 128/72
[2017-07-11 23:27] VITALS: BP 128/72
[2017-07-12 06:12] VITALS: BP 166/88
[2017-07-12 09:17] LABS: ABSOLUTE BASOPHIL COUNT 0 /CUMM (0.0-0.2); ABSOLUTE EOSINOPHIL COUNT 0.1 /CUMM (0.0-0.7); ABSOLUTE LYMPH COUNT 1.4 /CUMM (1.2-3.4); ABSOLUTE MONOCYTE COUNT 0.6 /CUMM (0.10-0.60); BASOPHIL % 0.3 % (0.0-2.0); EOSINOPHIL % 0.7 % (0-5); GRANULOCYTE % 77.5 % (42.2-75.2); HEMATOCRIT 33.2 % (37-47); MEAN CORPUSCULAR HGB 29.4 PG (27.0-31.0); MEAN CORPUSCULAR HGB CONC 32.9 G/DL (33.0-37.0); MEAN CORPUSCULAR VOLUME 89.3 FL (81.0-99.0); MEAN PLATELET VOLUME 8.1 FL (7.4-10.4); PLATELET COUNT 255 /CUMM (130-400); RBC DISTRIBUTION WIDTH 15.6 % (11.5-14.5); RED BLOOD CELL CT 3.72 /CUMM (4.20-5.40)
--- NOTE | 2017-07-12 10:14 | PN- Housestaff ---
Carlo LEHMAN,Nikki 07/12/17 1014: Subjective Follow-up For: witnessed mechanical fall lethargy change from baseline Subjective: patient continues to be lethargic and at a change from her talkative energetic baseline (where she was 2 days back). She appears confused now and is slow to answer questions. AOx2. Review of Systems Constitutional: Reports: weakness. Cardiovascular: Reports: no symptoms. Respiratory: Reports: no symptoms. Musculoskeletal: Reports: joint pain. Neurological/Psychological: Reports: cognitive dysfunction (lethargic and slow). Objective Last 24 Hrs of Vital Signs/I&O Vital Signs Date Time Temp Pulse Resp B/P B/P Pulse O2 O2 Flow FiO2 Mean Ox Delivery Rate 07/12 1506 99.6 95 20 130/64 94 Room Air 07/12 0814 90 142/84 07/12 0813 90 142/84 07/12 0612 98.8 96 20 166/88 93 07/11 2327 97.8 92 16 128/72 96 Room Air 07/11 2126 97.8 92 18 128/72 96 Room Air Intake & Output 07/12 1600 07/12 0800 07/12 0000 Intake Total 600 480 Output Total Balance 600 480 Intake, Oral 600 480 Number 0 0 Bowel Movements Physical Exam General Appearance: Cooperative, No Acute Distress Skin: No Rashes, No Breakdown Cardiovascular: Regular Rate, Normal S1, Normal S2 Lungs: Clear to Auscultation, Normal Air Movement Abdomen: Normal Bowel Sounds, Soft, No Tenderness Extremities: Normal Pulses, right hand pain, splint, has carpal tunnel there but fell on it during the fall Current Medications: Current Medications Sig/Chaparro Start time Last Medication Dose Route Stop Time Status Admin Acetaminophen 1,000 MG Q6P PRN 07/09 2200 AC IV Allopurinol 300 MG DAILY 07/10 1000 AC 07/12 PO 0814 Atorvastatin Calcium 80 MG 1700 07/10 1700 AC 07/12 PO 1751 Bisacodyl 10 MG ONCE ONE 07/13 0600 AC FL 07/13 0601 Clopidogrel Bisulfate 75 MG DAILY 07/10 1000 AC 07/12 PO 0814 Docusate Sodium 100 MG BID 07/11 1402 AC 07/12 PO 0813 Enoxaparin Sodium 40 MG DAILY 07/10 1000 AC 07/12 SC 0814 Insulin Aspart 0 TIDAC 07/10 0800 AC 07/12 SC 1145 Losartan Potassium 50 MG DAILY 07/10 1000 AC 07/12 PO 0813 Magnesium Oxide 400 MG BID 07/11 1348 DC 07/11 PO 07/11 Metoprolol Succinate 12.5 MG DAILY 07/10 1000 AC 07/12 PO 0814 Polyethylene Glycol 17 GM DAILY 07/11 1402 AC 07/12 PO 0814 Senna 187 MG AT BEDTIME 07/11 220 AC 07/11 PO 2115 Tramadol HCl 50 MG Q6 PRN 07/09 2199 DC 07/11 PO 08 Last 24 Hrs of Lab/Festus Results Last 24 Hrs of Labs/Mics: Laboratory Tests 07/12/17 0800: Anion Gap 14, Estimated GFR > 60, BUN/Creatinine Ratio 16.7, Magnesium 1.6, CBC w Diff NO MAN DIFF REQ, RBC 3.72 L, MCV 89.3, MCH 29.4, RDW 15.6 H, MPV 8.1, Gran % 77.5 H, Lymphocytes % 15.2 L, Monocytes % 6.3, Eosinophils % 0.7, Basophils % 0.3, Absolute Granulocytes 7.0 H, Absolute Lymphocytes 1.4, Absolute Monocytes 0.6, Absolute Eosinophils 0.1, Absolute Basophils 0, PUBS MCHC 32.9 L Assessment/Plan Assessment: The patient is 86-year-old female with past medical history of hyperlipidemia, hypertension, diabetes mellitus, diastolic heart failure (EF 65% in 2016) and COPD. The patient presented to [place] ED on 07/09 with presenting complaint of witnessed mechanical fall. 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 R knee XR and ankle xray reveal soft tissue swelling Hip xray negative for any acute fractures RLE veouns doppler : No evidence of deep venous thrombosis involving the lower extremity. A Munoz's cyst is present. -Physical therapy recommends STR -Pain control -patient states right wrist hurts. no xray done so we put in 3 view xray right hand which was negative for acute injury or fracture. #lethargy patient was somnolent. we did cxr which was normal except mild atelectasis blood cultures taken day before no increased oxygen demand, no leukocytosis, not febrile ct head today showed no acute change #Hypokalemia and hypomagnesemia K 3.2 -> 4.9 Mg 1.0 -> 1.6 -Monitor BP and replete as needed #Diabetes mellitus -glucose 227 today -Accu-Cheks hold oral anti-diabetic medication insulin sliding scale #Chronic medical conditions hypertension, hyperlipidemia, TIA -continue metoprolol, losartan Lipitor and Plavix FC/DVT prophylaxis with Lovenox/diabetic diet Problem List: 1. Fall Pain Ratin Pain Location: right hip and hand Pain Goal: Pain 4 or less Pain Plan: prn Tomorrow's Labs & Rationales: cbc bep Valentin Mota 07/12/17 1402: Attending MD Review Statement Attending Statement Attending MD Statement: examined this patient, discuss w/resident/PA/GASKET MAKER, agreed w/resident/PA/GASKET MAKER, discussed with family, reviewed EMR data (avail), discussed with nursing, discussed with case mgmt, reviewed images, amended to note Attending Assessment/Plan: Patient seen/examined bedside. She is more somnolent today. She is not receiving signifcant pain meds. No focal deficits. There was concern of dysphagia from nurse. will obtain CT Head. Speech/swallow. 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 On plavix and statin at home. Her urinalysis negative on admisison with absent leukocytosis and fever. Patient here for mechanical fall and general physical deconditioning. PT eval recommended STR. Patient no acute fracture. Patient had hypokalemia on admission which is improved with supplementation. Constipation bowel regimen, pain control, had bowel movement: resolved Cont current care..anticipate dc to STR.
--- NOTE | 2017-07-12 12:01 | CT SCAN REPORT ---
EXAMINATION: CT HEAD WITHOUT CONTRAST CLINICAL INFORMATION: New onset drowsiness following fall. COMPARISON: CT of the head done on 07/09/2017. TECHNIQUE: Contiguous axial imaging was performed from the skull base to vertex without intravenous administration of contrast. The initial study was technically suboptimal due to motion related artifacts. Repeat images were obtained and accordingly. Repeat study was also slightly limited. DLP: 1295.85 mGy-cm FINDINGS: There is no evidence of acute intracranial hemorrhage or territorial infarction. No abnormal mass effect or midline shift is seen. Cuello to white matter differentiation is well preserved. No extra-axial fluid collections are identified. The ventricles are normal in size. Mild diffuse cortical atrophy and mild chronic microvascular deep white matter ischemic changes are present, unchanged since 07/09/2017. 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 The osseous structures and soft tissues are normal. The mastoid air cells and visualized portions of the paranasal sinuses are well aerated. IMPRESSION: No acute intracranial pathology. No significant change since 07/09/2017.
[2017-07-12 15:06] VITALS: BP 130/64
[2017-07-12 21:57] VITALS: BP 126/58
[2017-07-13 06:37] VITALS: BP 158/85
--- NOTE | 2017-07-13 07:29 | PN- Housestaff ---
Kimo LEHMAN,[facility] 07/13/17 0729: Subjective Follow-up For: mechanical fall Subjective: Nursing staff insert patient had change in mentation over the weekend. Family also states that the patient is not at her baseline. Explained to the family some possible causes of her mental status included acute stroke which was negative on repeat CT head, infection, polypharmacy, electrolyte abnormalities, disorientation, sundowning. Review of Systems Constitutional: Reports: no symptoms. Cardiovascular: Reports: no symptoms. Respiratory: Reports: no symptoms. Gastrointestinal: Reports: no symptoms. Genitourinary: Reports: no symptoms. Musculoskeletal: Reports: see HPI. Objective Last 24 Hrs of Vital Signs/I&O Vital Signs Date Time Temp Pulse Resp B/P B/P Pulse O2 O2 Flow FiO2 Mean Ox Delivery Rate 07/13 1958 93 Room Air 07/13 1520 99.2 101 18 126/80 92 07/13 1128 Room Air Room Air 07/13 0855 92 152/80 07/13 0855 92 152/80 07/13 0800 94 Room Air Room Air 07/13 0637 98.3 94 20 158/85 93 Intake & Output 07/13 1600 07/13 0800 07/13 0000 Intake Total 600 240 480 Output Total 300 Balance 300 240 480 Intake, Oral 600 240 480 Number 1 0 0 Bowel Movements Output, Urine 300 Physical Exam General Appearance: Alert, No Acute Distress, Mild Distress, patient not answering or having full conversation as I saw her last thursday Cardiovascular: systolic murmur Lungs: Clear to Auscultation, Normal Air Movement Abdomen: Normal Bowel Sounds, Soft, No Tenderness Extremities: 2+ radial pulses Current Medications: Current Medications Sig/Chaparro Start time Last Medication Dose Route Stop Time Status Admin Acetaminophen 1,000 MG Q6P PRN 07/09 2200 AC IV Allopurinol 300 MG DAILY 07/10 1000 AC 07/13 PO 0854 Atorvastatin Calcium 80 MG 1700 07/10 1700 AC 07/13 PO 1704 Bisacodyl 10 MG ONCE ONE 07/13 0600 DC 07/13 OR 07/13 0601 0515 Clopidogrel Bisulfate 75 MG DAILY 07/10 1000 AC 07/13 PO 0855 Docusate Sodium 100 MG BID 07/11 1402 AC 07/13 PO 2137 Enoxaparin Sodium 40 MG DAILY 07/10 1000 AC 07/13 SC 0854 Insulin Aspart 0 TIDAC 07/10 0800 AC 07/13 SC 1703 Losartan Potassium 50 MG DAILY 07/10 1000 AC 07/13 PO 0855 Metoprolol Succinate 12.5 MG DAILY 07/10 1000 AC 07/13 PO 0855 Polyethylene Glycol 17 GM DAILY 07/11 1402 AC 07/13 PO 0854 Senna 187 MG AT BEDTIME 07/11 2200 AC 07/13 PO 2137 Last 24 Hrs of Lab/Festus Results Last 24 Hrs of Labs/Mics: Laboratory Tests 07/13/17 0842: Anion Gap 13, Estimated GFR > 60, BUN/Creatinine Ratio 20.0, Magnesium 1.7, CBC w Diff NO MAN DIFF REQ, RBC 3.74 L, MCV 89.0, MCH 28.8, RDW 15.8 H, MPV 8.4, Gran % 76.9 H, Lymphocytes % 14.9 L, Monocytes % 6.8, Eosinophils % 1.0, Basophils % 0.4, Absolute Granulocytes 7.8 H, Absolute Lymphocytes 1.5, Absolute Monocytes 0.7 H, Absolute Eosinophils 0.1, Absolute Basophils 0, PUBS MCHC 32.4 L 07/13/17 0815: Urine Color YEL, Urine Clarity HAZY H, Urine pH 6.5, Ur Specific [place] 1.015, Urine Protein TRACE H, Urine Ketones NEG, Urine Nitrite POS H, Urine Bilirubin NEG, Urine Urobilinogen 0.2, Ur Leukocyte Esterase TRACE H, Ur Microscopic SEDIMENT EXAMINED, Urine RBC FEW H, Urine WBC 3-5 H, Ur Epithelial Cells RARE, Urine Bacteria MANY H, Urine Hemoglobin NEG, Urine Glucose NEG Microbiology 07/13 814 URINE ROUT: Urine Culture - RECD Assessment/Plan Assessment: The patient is 86-year-old female with past medical history of hyperlipidemia, hypertension, diabetes mellitus, diastolic heart failure (EF 65% in 2016) and COPD. The patient presented to [place] ED on 07/09 with presenting complaint of witnessed mechanical fall. 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 R knee XR and ankle xray reveal soft tissue swelling Hip xray negative for any acute fractures RLE veouns doppler : No evidence of deep venous thrombosis involving the lower extremity. A Munoz's cyst is present. Patient states right wrist pain but xray negative -Physical therapy recommends STR -Pain control #lethargy Urinalysis reveals positive nitrite, trace leukocyte esterase CXR 2 view: Partially improved aeration in the retrocardiac region with linear opacities remaining suggesting atelectasis -1X DOSE OF CEFTRIAXONE -Follow-up urine culture #Hypokalemia and hypomagnesemia K 3.2 -> 4.8 Mg 1.0 -> 1.7 -Monitor BP and replete as needed #Diabetes mellitus -glucose 227 today -Accu-Cheks hold oral anti-diabetic medication insulin sliding scale #Chronic medical conditions hypertension, hyperlipidemia, TIA -continue metoprolol, losartan Lipitor and Plavix FC/DVT prophylaxis with Lovenox/diabetic diet Problem List: 1. Fall 2. UTI (urinary tract infection) 3. Lethargy Pain Ratin Pain Location: none Pain Goal: Pain 4 or less Pain Plan: pain pathway Tomorrow's Labs & Rationales: cbc bep Valentin Mota 07/13/17 1142: Attending MD Review Statement Attending Statement Attending MD Statement: examined this patient, discuss w/resident/PA/FRACTIONATION PLANT SUPERVISOR, agreed w/resident/PA/FRACTIONATION PLANT SUPERVISOR, discussed with family, reviewed EMR data (avail), discussed with nursing, discussed with case mgmt, reviewed images, amended to note Attending Assessment/Plan: Patient seen/examined bedside. No focal deficits. sample taker operator bedside this am and confirmed she is fluctuating mental status at baseline. CT head negative for acute abnormality. There was concern of dysphagia from nurse. f/u Speech/swallow. 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 On plavix and statin at home. Her urinalysis negative on admisison with absent leukocytosis and fever. Patient here for mechanical fall and general physical deconditioning. PT eval recommended STR. Patient no acute fracture. Patient had hypokalemia on admission which is improved with supplementation. Constipation bowel regimen, pain control, had bowel movement: resolved Cont current care..anticipate dc to STR.
[2017-07-13 10:51] LABS: ABSOLUTE BASOPHIL COUNT 0 /CUMM (0.0-0.2); ABSOLUTE EOSINOPHIL COUNT 0.1 /CUMM (0.0-0.7); ABSOLUTE GRANULOCYTE CT 7.8 /CUMM (1.4-6.5); ABSOLUTE LYMPH COUNT 1.5 /CUMM (1.2-3.4); ABSOLUTE MONOCYTE COUNT 0.7 /CUMM (0.10-0.60); BASOPHIL % 0.4 % (0.0-2.0); GRANULOCYTE % 76.9 % (42.2-75.2); HEMATOCRIT 33.3 % (37-47); MEAN CORPUSCULAR HGB 28.8 PG (27.0-31.0); MEAN CORPUSCULAR HGB CONC 32.4 G/DL (33.0-37.0); MEAN PLATELET VOLUME 8.4 FL (7.4-10.4); PLATELET COUNT 287 /CUMM (130-400); RBC DISTRIBUTION WIDTH 15.8 % (11.5-14.5); RED BLOOD CELL CT 3.74 /CUMM (4.20-5.40); WHITE BLOOD CELL COUNT 10.1 /CUMM (4.8-10.8)
--- NOTE | 2017-07-13 15:17 | RADIOLOGY REPORT ---
EXAMINATION: XR CHEST CLINICAL INFORMATION: Altered mental status. COMPARISON: 07/11/2017 TECHNIQUE: 2 views of the chest were obtained. FINDINGS: Lung volumes are low. Linear left basilar opacity noted, with mildly improved aeration compared to prior. Bronchial wall thickening noted. This could be chronic. No pneumothorax or pleural effusion. The cardiomediastinal silhouette is unchanged. IMPRESSION: Partially improved aeration in the retrocardiac region with linear opacities remaining suggesting atelectasis.
[2017-07-13 15:20] VITALS: BP 126/80
[2017-07-13 22:00] VITALS: BP 162/92
[2017-07-13 22:54] VITALS: BP 162/92
[2017-07-14 06:44] VITALS: BP 120/74
[2017-07-14 09:06] LABS: ABSOLUTE BASOPHIL COUNT 0 /CUMM (0.0-0.2); ABSOLUTE EOSINOPHIL COUNT 0.1 /CUMM (0.0-0.7); ABSOLUTE LYMPH COUNT 1.6 /CUMM (1.2-3.4); ABSOLUTE MONOCYTE COUNT 0.5 /CUMM (0.10-0.60); BASOPHIL % 0.5 % (0.0-2.0); GRANULOCYTE % 75.5 % (42.2-75.2); MEAN CORPUSCULAR HGB 29.1 PG (27.0-31.0); MEAN CORPUSCULAR HGB CONC 32.6 G/DL (33.0-37.0); MEAN CORPUSCULAR VOLUME 89.2 FL (81.0-99.0); MEAN PLATELET VOLUME 8.5 FL (7.4-10.4); PLATELET COUNT 308 /CUMM (130-400); RBC DISTRIBUTION WIDTH 15.6 % (11.5-14.5); RED BLOOD CELL CT 3.71 /CUMM (4.20-5.40); WHITE BLOOD CELL COUNT 9.3 /CUMM (4.8-10.8)
--- NOTE | 2017-07-14 13:36 | PN- Housestaff ---
Kimo LEHMAN,[facility] 07/14/17 1335: Subjective Follow-up For: Mechanical fall AMS Subjective: Patient appeared more alert this AM. Nurses reported that patient much more alert this afternoon. Pt has no complaints. States she is feeling more with it today. Review of Systems Constitutional: Reports: no symptoms. Cardiovascular: Reports: no symptoms. Respiratory: Reports: no symptoms. Gastrointestinal: Reports: no symptoms. Genitourinary: Reports: no symptoms. Musculoskeletal: Reports: no symptoms. Objective Last 24 Hrs of Vital Signs/I&O Vital Signs Date Time Temp Pulse Resp B/P B/P Pulse O2 O2 Flow FiO2 Mean Ox Delivery Rate 07/14 1416 97.7 81 20 113/80 99 Room Air 07/14 1415 94 Room Air 07/14 1253 Room Air 07/14 0918 92 126/74 07/14 0917 92 126/74 07/14 0644 98.8 96 20 120/74 93 Room Air 07/14 0214 100 162/92 07/13 2254 98.0 100 22 162/92 95 Room Air 07/13 2200 100.1 102 18 162/92 92 Room Air Intake & Output 07/14 1600 07/14 0800 07/14 0000 Intake Total 600 240 480 Output Total Balance 600 240 480 Intake, Oral 600 240 480 Number 0 1 Bowel Movements Patient 224 lb Weight Physical Exam General Appearance: Alert, Cooperative, No Acute Distress Cardiovascular: systolic murmur Lungs: Clear to Auscultation, Normal Air Movement Abdomen: Normal Bowel Sounds, Soft, No Tenderness Extremities: bruise inferior to knee Vascular: 2+ radial pulses Current Medications: Current Medications Sig/Chaparro Start time Last Medication Dose Route Stop Time Status Admin Acetaminophen 1,000 MG Q6P PRN 07/09 2200 AC 07/14 IV 0557 Allopurinol 300 MG DAILY 07/10 1000 AC 07/14 PO 0917 Amlodipine Besylate 5 MG ONCE ONE 07/13 2345 DC 07/14 PO 07/13 2346 0214 Amoxicillin/ 875 MG Q12 07/14 1000 AC 07/14 Clavulanate Potassium PO 1129 Atorvastatin Calcium 80 MG 1700 07/10 1700 AC 07/14 PO 1708 Ceftriaxone Sodium 1,000 MG ONCE ONE 07/13 2230 DC 07/14 IV 07/13 223 0214 Clopidogrel Bisulfate 75 MG DAILY 07/10 1000 AC 07/14 PO 0917 Docusate Sodium 100 MG BID 07/11 1402 AC 07/14 PO 0917 Enoxaparin Sodium 40 MG DAILY 07/10 1000 AC 07/14 SC 0917 Insulin Aspart 0 TIDAC 07/10 0800 AC 07/14 SC 1706 Losartan Potassium 50 MG DAILY 07/10 1000 AC 07/14 PO 0917 Metoprolol Succinate 12.5 MG DAILY 07/10 1000 AC 07/14 PO 0918 Polyethylene Glycol 17 GM DAILY 07/11 1402 AC 07/14 PO 0917 Senna 187 MG AT BEDTIME 07/11 2200 AC 07/13 PO 2137 Last 24 Hrs of Lab/Festus Results Last 24 Hrs of Labs/Mics: Laboratory Tests 07/14/17 0912: D-Dimer High Sensitivty 536 H 07/14/17 0743: Anion Gap 14, Estimated GFR > 60, BUN/Creatinine Ratio 25.0, Troponin I < 0.01, CBC w Diff NO MAN DIFF REQ, RBC 3.71 L, MCV 89.2, MCH 29.1, RDW 15.6 H, MPV 8.5, Gran % 75.5 H, Lymphocytes % 17.4 L, Monocytes % 5.6, Eosinophils % 1.0, Basophils % 0.5, Absolute Granulocytes 7.0 H, Absolute Lymphocytes 1.6, Absolute Monocytes 0.5, Absolute Eosinophils 0.1, Absolute Basophils 0, PUBS MCHC 32.6 L Assessment/Plan Assessment: The patient is 86-year-old female with past medical history of hyperlipidemia, hypertension, diabetes mellitus, diastolic heart failure (EF 65% in 2016) and COPD. The patient presented to [place] ED on 07/09 with presenting complaint of witnessed mechanical fall. 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 R knee XR and ankle xray reveal soft tissue swelling Hip xray negative for any acute fractures RLE veouns doppler : No evidence of deep venous thrombosis involving the lower extremity. A Munoz's cyst is present. Patient states right wrist pain but xray negative -Physical therapy recommends STR -Pain control #lethargy Urinalysis reveals positive nitrite, trace leukocyte esterase CXR 2 view: Partially improved aeration in the retrocardiac region with linear opacities remaining suggesting atelectasis Ucx growing gram + cocci -Pt appears more alert after 1x dose of ceftriaxone yesterday -Follow-up urine culture sensitivities -cont augmnetin #Hypokalemia and hypomagnesemia K 3.2 -> 4.8 Mg 1.0 -> 1.7 -Monitor BP and replete as needed #Diabetes mellitus -glucose well controlled in the 200s -Accu-Cheks hold oral anti-diabetic medication insulin sliding scale #Chronic medical conditions hypertension, hyperlipidemia, TIA -continue metoprolol, losartan Lipitor and Plavix #FULL CODE #DVT prophylaxis with Lovenox Problem List: 1. UTI (urinary tract infection) 2. Fall Pain Ratin Pain Location: none Pain Goal: Pain 4 or less Pain Plan: pain pathway Tomorrow's Labs & Rationales: cbc bep Valentin Mota 07/14/17 1337: Attending MD Review Statement Attending Statement Attending MD Statement: examined this patient, discuss w/resident/PA/MEDICAL VAN DRIVER, agreed w/resident/PA/MEDICAL VAN DRIVER, discussed with family, reviewed EMR data (avail), discussed with nursing, discussed with case mgmt, reviewed images, amended to note Attending Assessment/Plan: Patient seen/examined bedside. fruit grading supervisor previuosly confirmed she is fluctuating mental status at baseline. CT head x2 negative for acute abnormality. Dysphagia f/u Speech/swallow recs mechanical soft consistency liquid. Repeat speech/swallow. 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 On plavix and statin at home. Her urine culture is GPC. f/u C/S. Patient here for mechanical fall and general physical deconditioning. PT eval recommended STR. Patient no acute fracture. Patient had hypokalemia on admission which is improved with supplementation. Constipation bowel regimen, pain control, had bowel movement: resolved Cont current care..anticipate dc to STR.
[2017-07-14 14:16] VITALS: BP 113/80
[2017-07-14 22:47] VITALS: BP 118/78
[2017-07-15 06:52] VITALS: BP 138/85
[2017-07-15 08:16] LABS: ABSOLUTE BASOPHIL COUNT 0 /CUMM (0.0-0.2); ABSOLUTE EOSINOPHIL COUNT 0.2 /CUMM (0.0-0.7); ABSOLUTE GRANULOCYTE CT 6.7 /CUMM (1.4-6.5); ABSOLUTE LYMPH COUNT 1.5 /CUMM (1.2-3.4); ABSOLUTE MONOCYTE COUNT 0.6 /CUMM (0.10-0.60); BASOPHIL % 0.2 % (0.0-2.0); EOSINOPHIL % 2.2 % (0-5); GRANULOCYTE % 74.6 % (42.2-75.2); HEMATOCRIT 36.3 % (37-47); MEAN CORPUSCULAR HGB 28.9 PG (27.0-31.0); MEAN CORPUSCULAR HGB CONC 32.5 G/DL (33.0-37.0); MEAN PLATELET VOLUME 8.3 FL (7.4-10.4); PLATELET COUNT 311 /CUMM (130-400); RBC DISTRIBUTION WIDTH 15.8 % (11.5-14.5); RED BLOOD CELL CT 4.08 /CUMM (4.20-5.40)
[2017-07-15] MEDS ORDERED: AMOX-CLAV 875-1 EACH PO (09:26)
--- NOTE | 2017-07-15 10:04 | PN- Housestaff ---
Kimo LEHMAN,Xander 07/15/17 1003: Subjective Follow-up For: mechanical fall ams most likely due to UTI Subjective: Patient appeared lethargic this AM. Discussed with nurse and informed that patient does not sleep well during the night. Patient much more alert during this afternoon when she woke up. Appears to be back at baseline. Review of Systems Constitutional: Reports: no symptoms. Cardiovascular: Reports: no symptoms. Respiratory: Reports: no symptoms. Gastrointestinal: Reports: no symptoms. Genitourinary: Reports: no symptoms. Musculoskeletal: Reports: no symptoms. Skin: Reports: no symptoms. Objective Last 24 Hrs of Vital Signs/I&O Vital Signs Date Time Temp Pulse Resp B/P B/P Pulse O2 O2 Flow FiO2 Mean Ox Delivery Rate 07/15 1333 98.1 91 20 162/86 07/15 1217 91 162/86 07/15 0652 98.1 89 20 138/85 96 07/14 2247 97.3 85 16 118/78 95 Room Air Intake & Output 07/15 1600 07/15 0800 07/15 0000 Intake Total 910 Output Total Balance 910 Intake, IV 10 Intake, Oral 900 Number 1 1 Bowel Movements Physical Exam General Appearance: Alert, Cooperative, No Acute Distress, AOx2. Knows month and current president. Thinks its year 2019 Cardiovascular: systolic murmur Lungs: Clear to Auscultation, Normal Air Movement Abdomen: Normal Bowel Sounds, Soft, No Tenderness Vascular: Normal Pulses (2), 2+ radial pulses Current Medications: Current Medications Sig/Chaparro Start time Last Medication Dose Route Stop Time Status Admin Acetaminophen 325 MG Q6P PRN 07/15 0900 DCD 07/15 PO 1214 Acetaminophen 1,000 MG Q6P PRN 07/09 2200 DCD 07/14 IV 0557 Allopurinol 300 MG DAILY 07/10 1000 DCD 07/15 PO 1217 Amoxicillin/ 875 MG Q12 07/14 1000 DCD 07/15 Clavulanate Potassium PO 1218 Atorvastatin Calcium 80 MG 1700 07/10 1700 DCD 07/14 PO 1708 Clopidogrel Bisulfate 75 MG DAILY 07/10 1000 DCD 07/15 PO 1217 Docusate Sodium 100 MG BID 07/11 1402 DCD 07/15 PO 1218 Enoxaparin Sodium 40 MG DAILY 07/10 1000 DCD 07/15 SC 1214 Insulin Aspart 0 TIDAC 07/10 0800 DCD 07/15 SC 1155 Losartan Potassium 50 MG DAILY 07/10 1000 DCD 07/15 PO 1217 Metoprolol Succinate 12.5 MG DAILY 07/10 1000 DCD 07/15 PO 1217 Patient Medication 1 ED ONE ONE 07/15 1100 DC 07/15 [facility] ED 07/15 1101 1218 Polyethylene Glycol 17 GM DAILY 07/11 1402 DCD 07/15 PO 1214 Senna 187 MG AT BEDTIME 07/11 2200 DCD 07/14 PO 2137 Last 24 Hrs of Lab/Festus Results Last 24 Hrs of Labs/Mics: Laboratory Tests 07/15/17 0738: Anion Gap 14, Estimated GFR > 60, BUN/Creatinine Ratio 30.0 H, CBC w Diff NO MAN DIFF REQ, RBC 4.08 L, MCV 89.0, MCH 28.9, RDW 15.8 H, MPV 8.3, Gran % 74.6 , Lymphocytes % 16.8 L, Monocytes % 6.2, Eosinophils % 2.2, Basophils % 0.2, Absolute Granulocytes 6.7 H, Absolute Lymphocytes 1.5, Absolute Monocytes 0.6, Absolute Eosinophils 0.2, Absolute Basophils 0, PUBS MCHC 32.5 L Assessment/Plan Assessment: The patient is 86-year-old female with past medical history of hyperlipidemia, hypertension, diabetes mellitus, diastolic heart failure (EF 65% in 2016) and COPD. The patient presented to [facility] ED on 07/09 with presenting complaint of witnessed mechanical fall. 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 R knee XR and ankle xray reveal soft tissue swelling Hip xray negative for any acute fractures RLE veouns doppler : No evidence of deep venous thrombosis involving the lower extremity. A Munoz's cyst is present. Patient states right wrist pain but xray negative -Patient being discharge to [facility] #lethargy Urinalysis reveals positive nitrite, trace leukocyte esterase CXR 2 view: Partially improved aeration in the retrocardiac region with linear opacities remaining suggesting atelectasis Ucx growing gram enteroccoccus >100k sensitive to ampcillin and 40k coagulase negative staph -Pt appears more alert after 1x dose of ceftriaxone and augmentin -Follow-up urine culture sensitivities -cont augmnetin for discharge x3 days to complete 5 day abx course #Hypokalemia and hypomagnesemia K 3.2 -> 4.4 Mg 1.0 -> 1.7 -Monitor BP and replete as needed #Diabetes mellitus -glucose well controlled in the 200s -Accu-Cheks hold oral anti-diabetic medication insulin sliding scale #Chronic medical conditions hypertension, hyperlipidemia, TIA -continue metoprolol, losartan Lipitor and Plavix #FULL CODE #DVT prophylaxis with Lovenox Problem List: 1. Fall 2. Lethargy 3. UTI (urinary tract infection) Pain Ratin Pain Location: none Pain Goal: Pain 4 or less Pain Plan: pain pathway Tomorrow's Labs & Rationales: cbc bep NakulArmando barrazamarni 07/15/17 1257: Attending MD Review Statement Attending Statement Attending MD Statement: examined this patient, discuss w/resident/PA/MICROECONOMICS PROFESSOR, agreed w/resident/PA/MICROECONOMICS PROFESSOR, discussed with family, reviewed EMR data (avail), discussed with nursing, discussed with case mgmt, reviewed images, amended to note Attending Assessment/Plan: Patient seen/examined bedside. classified ad taker previuosly confirmed she is fluctuating mental status at baseline. CT head x2 negative for acute abnormality. Dysphagia f/u Speech/swallow recs mechanical soft consistency liquid. 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 On plavix and statin at home. Her urine culture is GPC started on oral antibiotic for UTI. Patient here for mechanical fall and general physical deconditioning. PT eval recommended STR. Patient no acute fracture. Patient had hypokalemia on admission which is improved with supplementation. Constipation bowel regimen, pain control, had bowel movement: resolved anticipate dc to STR today. Advance diet as tolerated at facility. FOLLOW UP PCP in 3-5 days of discharge.
[2017-07-15] MEDS ORDERED: SENNA-TIME S T1 EACH PO (11:27)
[2017-07-15] MEDS ORDERED: MIRALAX119 GM PO (11:27)
[2017-07-15] MEDS ORDERED: DOCUSATE SODIU100 M3 PO (11:27)
[2017-07-15 13:33] VITALS: BP 162/86
== END 2017-07-15 14:30 | DRG 92 ==
LOC: ERH 16:12 → 2NB 21:46 → ERHI 21:46 → ENRESERV 22:30 → 2NB 23:06 → ENPENDDIS 07-15 11:56 → 2NB 07-15 14:30
PROVIDERS: Emergency Medicine; Internal Medicine; Student in an Organized Health Care Education/Training Program
DX: R26.9 Unspecified abnormalities of gait and mobility (principal); I50.32 Chronic diastolic (congestive) heart failure; E11.8 Type 2 diabetes mellitus with unspecified complications; I11.0 Hypertensive heart disease with heart failure; E83.42 Hypomagnesemia; R13.10 Dysphagia, unspecified; N39.0 Urinary tract infection, site not specified; E87.6 Hypokalemia; M25.561 Pain in right knee; E78.5 Hyperlipidemia, unspecified; Z79.84 Long term (current) use of oral hypoglycemic drugs; J44.9 Chronic obstructive pulmonary disease, unspecified; Z79.82 Long term (current) use of aspirin; Z86.73 Personal history of transient ischemic attack (TIA), and cerebral infarction without residual deficits; K59.00 Constipation, unspecified; W01.0XXA Fall on same level from slipping, tripping and stumbling without subsequent striking against object, initial encounter; Y93.89 Activity, other specified; Y92.019 Unspecified place in single-family (private) house as the place of occurrence of the external cause
CPT/HCPCS: 2NBP; 87184; 36415; 71045; 71046; 73130-RT; 73502-RT; 73562-RT; 73610-RT; 81001; 81003; 82436; 87086; 87147; 93005; 93010; 97110-GO; 97112-GO; 97161-GP; 97530-GO; J0696; J1650

== ENCOUNTER 2017-10-24 21:23 | Inpatient (IN) | payer OTHER, MEDICARE ==
[~2017-10-24] VITALS: Ht 165.1 cm; Wt 131.2 kg
[~2017-10-24 21:23] MED LIST changes: +AMOX-CLAV 875-1 EACH PO; +ASPIRIN81 M4 PO; +DOCUSATE SODIU100 M3 PO; +METOPROLOL SUCC25 M1 PO; +MIRALAX119 GM PO; +SENNA-TIME S T1 EACH PO; +ULTRAM50 M1 PO
--- NOTE | 2017-10-24 21:40 | ED AMS/SEIZURE/WEAK/DIZZY ---
History of Present Illness General Chief Complaint: Altered Mental Status Stated Complaint: BIBA AMS Source: patient, family Exam Limitations: no limitations Vital Signs & Intake/Output Vital Signs & Intake/Output Vital Signs Date Time Temp Pulse Resp B/P B/P Pulse O2 O2 Flow FiO2 Mean Ox Delivery Rate 10/25 0034 98.3 93 20 180/88 95 Room Air 10/24 2134 100.1 90 16 204/92 98 Room Air ED Intake and Output 10/25 0000 10/24 1200 Intake Total Output Total 125 Balance -125 Output, Urine 125 Patient 0 lb Weight Weight 1<jk`dXk\\Z Measurement Method Allergies Coded Allergies: NO KNOWN ALLERGIES (06/03/12) Reconcile Medications Allopurinol 300 MG TABLET 1 TAB PO DAILY GOUT (Reported) Amoxicillin/Clavulanate Potass (Amox-Clav 875-125 MG Tablet) 875 MG-125 MG TABLET 1 TAB PO Q12 UTI Aspirin (Aspirin*) 81 MG TAB.CHEW 1 TAB PO DAILY PRN HEART (Reported) Atorvastatin Calcium (Lipitor) 80 MG TABLET 1 TAB PO DAILY CHOLESTEROL ( Reported) Clopidogrel Bisulfate (Plavix) 75 MG TABLET 1 TAB PO DAILY BLOOD THINNER ( Reported) Docusate Sodium 100 MG CAPSULE 1 TAB PO BID PRN CONSTIPATION Furosemide 20 MG TABLET 1 TAB PO DAILY PRN WATER PILL (Reported) Glipizide (Glipizide ER) 10 MG TAB.ER.24 1 TAB PO DAILY DIABETES (Reported) Reason to Stop at ADM: ON ISS Metformin HCl (Metformin HCl ER) 500 MG TAB.ER.24 2 TAB PO BID DIABETES ( Reported) Reason to Stop at ADM: ON ISS Metoprolol Succinate 25 MG TAB 0.5 TAB PO DAILY HEART (Reported) Polyethylene Glycol 3350 (Miralax) 17 GRAM/DOSE POWDER 17 GM PO DAILY PRN CONSTIPATION Sennosides/Docusate Sodium (Senna-Time S Tablet) 8.6 MG-50 MG TABLET 1 TAB PO AT BEDTIME PRN CONSTIPATION Tramadol HCl (Ultram) 50 MG TABLET 1 TAB PO BIDP PRN JOINT PAIN (Reported) Valsartan 80 MG TABLET 1 TAB PO DAILY BP (Reported) Triage Note: 86 YEAR OLD FEMALE BIBA FROM HOME C/O INCREASED WEAKNESS STARTING TODAY. PT WAS EVAL'D BY PCP FOR INCREASE IN AMS OVER THE PAST 3 DAYS AND WAS DIAGNOSED WITH UTI, PT WAS STARTED ON ANTIBIOTICS TODAY. PT ARRIVES TO ED ALERT AND ORIENTED TO PERSON AND PLACE, CLEAR SPEECH AND ANSWERING QUESTIONS APPROPRIATELY. DR. RM TO BEDSIDE FOR EVAL. Triage Nurses Notes Reviewed? yes Onset: Gradual Duration: day(s): Timing: single episode today Injury Environment: home Severity: mild, moderate Modifying Factors: Improves With: rest. Associated Symptoms: weakness HPI: 86 yo woman h/o uti's feeling weak all day and can't walk. Her son notes, "we tried to get her up and she just couldn't walk." Decreased oral intake with increased fatigue and confusion. She has no fever, chills, nausea, vomiting, chest pain. She is otherwise well. Past History Medical History Any Pertinent Medical History? 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 No Review of Systems Review of Systems Constitutional: Reports: no symptoms. EENTM: Reports: no symptoms. Respiratory: Reports: no symptoms. Cardiovascular: Reports: no symptoms. GI: Reports: no symptoms. Genitourinary: Reports: no symptoms. Musculoskeletal: Reports: no symptoms. Skin: Reports: no symptoms. Neurological/Psychological: Reports: no symptoms. Hematologic/Endocrine: Reports: no symptoms. Immunologic/Allergic: Reports: no symptoms. All Other Systems: Reviewed and Negative Physical Exam Physical Exam General Appearance: well developed/nourished, no apparent distress Head: atraumatic, normal appearance Eyes: Bilateral: normal appearance. Ears, Nose, Throat: normal pharynx, dry mucosa Neck: normal inspection, supple, full range of motion Respiratory: normal breath sounds, chest non-tender, no respiratory distress, quiet respiration, lungs clear Cardiovascular: regular rate/rhythm Gastrointestinal: normal bowel sounds, soft, non-tender, no organomegaly Back: normal inspection, normal range of motion Extremities: normal range of motion Neurologic/Psych: no motor/sensory deficits, awake, alert, oriented x 3 Skin: intact, normal color, warm/dry Core Measures ACS in differential dx? No CVA/TIA Diagnosis No Sepsis Present: No Sepsis Focused Exam Completed? No Progress Differential Diagnosis: uti vs dehydration vs other. Plan of Care: Orders Procedure Date/time Status Nothing by Mouth 10/25 B Active Saline Lock 10/26 43 Active Misc Message 10/26 43 Active ED Holding Orders 10/26 43 Active Admit to inpatient 10/26 43 Active Vital Signs 10/26 43 Active Code Status 10/26 43 Active BLOOD CULTURE 10/25 9 Active Add-on Test (ER Only) 10/25 8 Active BLOOD CULTURE 10/25 8 Active CULTURE,URINE 10/24 2344 Active URINALYSIS 10/25 2139 Complete TROPONIN LEVEL 10/25 2139 Complete LIPASE 10/25 2139 Complete HEPATIC FUNCTION PANEL 10/25 2139 Complete CBC WITHOUT DIFFERENTIAL 10/25 2139 Complete BASIC METABOLIC PANEL 10/25 2139 Complete AMYLASE 10/25 2139 Complete EKG 10/25 2139 Active Laboratory Tests 10/24/17 2345: Urine Color YEL, Urine Clarity HAZY H, Urine pH 6.0, Ur Specific [place] 1.020, Urine Protein NEG, Urine Ketones NEG, Urine Nitrite POS H, Urine Bilirubin NEG, Urine Urobilinogen 0.2, Ur Leukocyte Esterase SMALL H, Ur Microscopic SEDIMENT EXAMINED, Urine WBC 15-25 H, Urine Bacteria PACKD H, Urine Hemoglobin NEG, Urine Glucose NEG 10/24/17 2240: Anion Gap 13, Estimated GFR > 60, BUN/Creatinine Ratio 17.1, Glucose 109 H, Calcium 9.2, Total Bilirubin 1.4 H, Direct Bilirubin 0.1, AST 15, ALT 20, Alkaline Phosphatase 63, Troponin I < 0.01, Total Protein 6.6, Albumin 4.0, Amylase 35, Lipase 102 10/24/17 2214: CBC w Diff NO MAN DIFF REQ, RBC 4.16 L, MCV 86.5, MCH 28.1, MCHC 32.5 L, RDW 16.5 H, MPV 7.9, Gran % 72.4, Lymphocytes % 20.8, Monocytes % 5.9, Eosinophils % 0.7, Basophils % 0.2, Absolute Granulocytes 6.9 H, Absolute Lymphocytes 2.0, Absolute Monocytes 0.6, Absolute Eosinophils 0.1, Absolute Basophils 0 Microbiology 10/25 0000 BLOOD: Blood Culture - RECD 10/24 2349 BLOOD: Blood Culture - RECD 10/24 2344 URINE ROUT: Urine Culture - RECD Diagnostic Imaging: Viewed by Me: Radiology Read. Discussed w/RAD: Radiology Read. CXR Impression: PATIENT: BAL VARGAS PRESENT AGE: 86 PATIENT ACCOUNT NO: [id number] : 32 LOCATION: [facility] ORDERING PHYSICIAN: Arturo Marcus MD SERVICE DATE: 10/24/17 EXAM TYPE: RAD - XRY-PORTABLE CHEST XRAY EXAMINATION: XR CHEST, PORTABLE CLINICAL INFORMATION: Chest pain. COMPARISON: Chest radiography 07/13/2017. TECHNIQUE: Portable frontal view of the chest was obtained. FINDINGS: The lungs are fairly well expanded. Minimal left retrocardiac opacification could represent a degree of atelectasis. No overt pulmonary edema. No pleural effusion or pneumothorax. Mediastinal contours have not significantly changed. No acute osseous abnormalities. IMPRESSION: No overt pulmonary edema. Minimal left retrocardiac opacification may represent a degree of atelectasis. DICTATED BY: Jonathan Loya MD DATE/TIME DICTATED:10/24/172234 [employer] ARCHITECT:MARIA T DATE/TIME TRANSCRIBED:10/24/172234 CONFIDENTIAL, DO NOT COPY WITHOUT APPROPRIATE AUTHORIZATION. <Electronically signed in Other Vendor System> SIGNED BY: Jonathan Loya MD 10/24/172244 Initial ED EKG: nsr, non specific st changes Departure Departure Disposition: STILL A PATIENT Condition: Stable Clinical Impression Primary Impression: Weakness Secondary Impressions: CHF (congestive heart failure), COPD exacerbation Referrals: Gil Nelson MD (PCP/Family) Departure Forms: Customer Survey General Discharge Information Admission Note Spoke With: Betty Lou MD Documentation of Exam: Documentation of any treatments & extenuating circumstances including Concerns Regarding Discharge (functional status, medication knowledge or non-compliance, living conditions, etc.) that warrant an admission rather than observation: pt with chf, copd exacerbation, requiring 02 support... pt merits iv lasix, iv steroids, abx, consider pulm, cards evaluation.
[2017-10-24 22:25] LABS: ABSOLUTE BASOPHIL COUNT 0 /CUMM (0.0-0.2); ABSOLUTE EOSINOPHIL COUNT 0.1 /CUMM (0.0-0.7); ABSOLUTE GRANULOCYTE CT 6.9 /CUMM (1.4-6.5); ABSOLUTE MONOCYTE COUNT 0.6 /CUMM (0.10-0.60); BASOPHIL % 0.2 % (0.0-2.0); EOSINOPHIL % 0.7 % (0-5); GRANULOCYTE % 72.4 % (42.2-75.2); MEAN CORPUSCULAR HGB 28.1 PG (27.0-31.0); MEAN CORPUSCULAR HGB CONC 32.5 G/DL (33.0-37.0); MEAN CORPUSCULAR VOLUME 86.5 FL (81.0-99.0); MEAN PLATELET VOLUME 7.9 FL (7.4-10.4); PLATELET COUNT 281 /CUMM (130-400); RBC DISTRIBUTION WIDTH 16.5 % (11.5-14.5); RED BLOOD CELL CT 4.16 /CUMM (4.20-5.40); WHITE BLOOD CELL COUNT 9.5 /CUMM (4.8-10.8)
--- NOTE | 2017-10-24 22:45 | RADIOLOGY REPORT ---
EXAMINATION: XR CHEST, PORTABLE CLINICAL INFORMATION: Chest pain. COMPARISON: Chest radiography 07/13/2017. TECHNIQUE: Portable frontal view of the chest was obtained. FINDINGS: The lungs are fairly well expanded. Minimal left retrocardiac opacification could represent a degree of atelectasis. No overt pulmonary edema. No pleural effusion or pneumothorax. Mediastinal contours have not significantly changed. No acute osseous abnormalities. IMPRESSION: No overt pulmonary edema. Minimal left retrocardiac opacification may represent a degree of atelectasis.
--- NOTE | 2017-10-25 02:57 | History & Physical ---
RaizaCelinadianna 10/25/17 0247: General Information and HPI MD Statement: I have seen and personally examined BAL VARGAS and documented this H &P. The patient is a 86 year old F who presented with a patient stated chief complaint of [altered mental status]. 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 Family reports that for the past 3-4 days, patient has been very weak on her feet with decreased by mouth intake and lethargy. She has been complaining of pain in her legs and was unable to walk. She also is more confused and fatigued. She also has been very hot and the temperature checked by the nursing care partner at home was around 99F. She was evaluated by her PCP and was diagnosed with an urinary tract infection and started on Augmentin today. No recent falls , no chest pain, no palpitations, no abdominal pain, no bowel complaints. Of note, patient was in [place] in June 2017 for mechanical fall, and was found to have a UTI. Was treated with ceftriaxone and Augmentin. Vitals in the ED temperature 100.1, pulse 90, respirations 16, blood pressure 102/92, saturating 98% on room air. Significant for H&H 11.7/36 (baseline), total bili 1.4, troponin 0.01 UA dirty, positive nitrate, positive leukocyte esterase, 15-25 WBC, packed bacteria chest x-ray negative for vascular congestion. Minimal left retrocardiac opacity? atelectasis Allergies/Medications Allergies: Coded Allergies: NO KNOWN ALLERGIES (06/03/12) Home Med list Allopurinol 300 MG TABLET 1 TAB PO DAILY GOUT (Reported) Amoxicillin/Clavulanate Potass (Amox-Clav 875-125 MG Tablet) 875 MG-125 MG TABLET 1 TAB PO Q12 UTI Aspirin (Aspirin*) 81 MG TAB.CHEW 1 TAB PO DAILY PRN HEART (Reported) Atorvastatin Calcium (Lipitor) 80 MG TABLET 1 TAB PO DAILY CHOLESTEROL ( Reported) Clopidogrel Bisulfate (Plavix) 75 MG TABLET 1 TAB PO DAILY BLOOD THINNER ( Reported) Docusate Sodium 100 MG CAPSULE 1 TAB PO BID PRN CONSTIPATION Furosemide 20 MG TABLET 1 TAB PO DAILY PRN WATER PILL (Reported) Glipizide (Glipizide ER) 10 MG TAB.ER.24 1 TAB PO DAILY DIABETES (Reported) Reason to Stop at ADM: ON ISS Metformin HCl (Metformin HCl ER) 500 MG TAB.ER.24 2 TAB PO BID DIABETES ( Reported) Reason to Stop at ADM: ON ISS Metoprolol Succinate 25 MG TAB 0.5 TAB PO DAILY HEART (Reported) Polyethylene Glycol 3350 (Miralax) 17 GRAM/DOSE POWDER 17 GM PO DAILY PRN CONSTIPATION Sennosides/Docusate Sodium (Senna-Time S Tablet) 8.6 MG-50 MG TABLET 1 TAB PO AT BEDTIME PRN CONSTIPATION Tramadol HCl (Ultram) 50 MG TABLET 1 TAB PO BIDP PRN JOINT PAIN (Reported) Valsartan 80 MG TABLET 1 TAB PO DAILY BP (Reported) Past History Travel History Traveled to [place] past 21 day No Medical History Neurological: NONE EENT: cataracts, hearing loss Cardiovascular: hypertension, hyperlipidemia, diastolic CHF Respiratory: COPD Gastrointestinal: NONE Hepatic: NONE Renal: urinary incontinence Musculoskeletal: falls Psychiatric: NONE Endocrine: diabetes THYROIDECTOMY Blood Disorders: NONE Cancer(s): NONE FIRST DYER/Reproductive: NONE History of MRSA: No History of VRE: No History of CDIFF: No Influenza Vaccine: 03/22/17 Surgical History Surgical History: cholecystectomy, THYROIDECTOMY Past Family/Social History Family History Relations & Conditions if any SISTER FH: diabetes mellitus MOTHER FH: cancer FATHER FH: diabetes mellitus FH: heart disease FH: HTN (hypertension) Psychosocial History Who Do You Live With? 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 no Functional Ability ADLs Independent: dressing, eating, toileting. Needs Assist: bathing. Ambulation: walker IADLs Needs Assist: shopping, housework, food prep, transportation. Review of Systems Review of Systems Constitutional: Reports: fever, malaise, weakness. EENTM: Reports: no symptoms. Cardiovascular: Reports: no symptoms. Respiratory: Reports: no symptoms. GI: Reports: no symptoms. Genitourinary: Reports: no symptoms. Musculoskeletal: Reports: joint pain, joint swelling, muscle pain. Skin: Reports: no symptoms. Exam & Diagnostic Data Last 24 Hrs of Vital Signs/I&O Vital Signs Date Time Temp Pulse Resp B/P B/P Pulse O2 O2 Flow FiO2 Mean Ox Delivery Rate 10/25 0245 98.0 88 22 182/78 95 10/25 0034 98.3 93 20 180/88 95 Room Air 10/24 2134 100.1 90 16 204/92 98 Room Air Intake & Output 10/25 0800 05 0000 10/24 1600 Intake Total Output Total 125 Balance -125 Output, Urine 125 Patient kg Weight Weight 1<jk`[id number]\Z Measurement Method Physical Exam General Appearance Alert, NOT ORIENTED TO TIME PLACE AND PERSON. Skin No Rashes, No Breakdown Skin Temp/Moisture Exam: Warm/Dry Sepsis Skin Exam (color): Normal for Ethnicity HEENT Atraumatic, PERRLA, EOMI Neck Supple, No JVD Lymphatic Cervical nl Cardiovascular Regular Rate, Normal S1, Normal S2, SYSTOLIC MURMUR 3+ Lungs Clear to Auscultation, Normal Air Movement Abdomen Normal Bowel Sounds, Soft, DIFFUSE TENDERNESS IN THE UMBILICAL AREA Neurological Normal Speech, POWER 3/5 BILATERAL LOWER EXTREMITIES.4 X 5 UPPER EXTREMITIES Extremities TENDERNESS IN BILATERAL LOWER EXTREMITIES, 1+PITTING EDEMA Last 24 Hrs of Labs/Festus: Laboratory Tests 10/24/17 2345: Urine Color YEL, Urine Clarity HAZY H, Urine pH 6.0, Ur Specific [place] 1.020, Urine Protein NEG, Urine Ketones NEG, Urine Nitrite POS H, Urine Bilirubin NEG, Urine Urobilinogen 0.2, Ur Leukocyte Esterase SMALL H, Ur Microscopic SEDIMENT EXAMINED, Urine WBC 15-25 H, Urine Bacteria PACKD H, Urine Hemoglobin NEG, Urine Glucose NEG 10/24/17 2240: Anion Gap 13, Estimated GFR > 60, BUN/Creatinine Ratio 17.1, Glucose 109 H, Calcium 9.2, Total Bilirubin 1.4 H, Direct Bilirubin 0.1, AST 15, ALT 20, Alkaline Phosphatase 63, Troponin I < 0.01, Total Protein 6.6, Albumin 4.0, Amylase 35, Lipase 102 10/24/17 2214: CBC w Diff NO MAN DIFF REQ, RBC 4.16 L, MCV 86.5, MCH 28.1, MCHC 32.5 L, RDW 16.5 H, MPV 7.9, Gran % 72.4, Lymphocytes % 20.8, Monocytes % 5.9, Eosinophils % 0.7, Basophils % 0.2, Absolute Granulocytes 6.9 H, Absolute Lymphocytes 2.0, Absolute Monocytes 0.6, Absolute Eosinophils 0.1, Absolute Basophils 0 Microbiology 10/25 0000 BLOOD: Blood Culture - RECD 10/24 2349 BLOOD: Blood Culture - RECD 10/24 234 URINE ROUT: Urine Culture - RECD Assessment/Plan Assessment: Patient is a 86-year-old female with past medical history of hypertension, hyperlipidemia, HFwPEF(EF 65%/2015), COPD, status post cholecystectomy and thyroidectomy was brought to the ED by family for increasing weakness and altered mental status. Vitals in the ED temperature 100.1, pulse 90, respirations 16, blood pressure 102/92, saturating 98% on room air. Significant for H&H 11.7/36 (baseline), total bili 1.4, troponin 0.01 UA dirty, positive nitrate, positive leukocyte esterase, 15-25 WBC, packed bacteria chest x-ray negative for vascular congestion. Minimal left retrocardiac opacity? atelectasis Assessment Generalized deconditioning, bilateral leg weakness likely secondary to UTI Sepsis secondary to UTI Bilateral leg tenderness Gait instability, and inability to ambulate Type 2 diabetes Hypertension/hyperlipidemia Plan Admit to [facility] Vitals per protocol IV normal saline at 75 cc an hourx1 bag Avoid opiates/delirium triggers Received IV ceftriaxone in the ED. Will start Unasyn as pt has grown VRE/ Escherichia coli and Klebseilla in the past urine cultures Blood and urine cultures We will get bilateral lower extremity Dopplers. 3 times a day Accu-Cheks, NovoLog sliding scale Physical therapy consult Patient will require STR or placement DVT prophylaxis subcutaneous Lovenox Full code Patient started is going to bring her medication list tomorrow morning.. Please confirm. As Ranked By This Provider Problem List: 1. Lethargy 2. UTI (urinary tract infection) Core Measures/Misc (03/08) Acute Coronary Syndrome ACS Diagnosis: No Congestive Heart Failure Congestive Heart Failure Diagnosis No Cerebrovascular Accident CVA/TIA Diagnosis: No VTE (View Protocol) VTE Risk Factors Obesity No Mechanical VTE Prophylaxis d/t N/A MechProphylax Ordered No VTE Pharm Prophylaxis d/t NA PharmProphylax ordered Sepsis (View protocol) Sepsis Present: No Betty Lou 10/25/17 0520: Attending MD Review Statement Attending Statement Attending MD Statement: examined this patient, discuss w/resident/PA/CUSTOMER SALES SERVICE MANAGER, agreed w/resident/PA/CUSTOMER SALES SERVICE MANAGER, reviewed EMR data (avail), reviewed images, amended to note Attending Assessment/Plan: CC: Confusion PMH: HLD, HTN, DM, heart failure reduced ejection fraction, COPD, S/P cholecystectomy History is mostly obtained from patient's daughter on phone and from the chart. Patient is pleasantly confused and disoriented. Patient daughter noticed that patient was very weak and lethargic since last 3 days, increased confusion, decreased by mouth intake, difficulty to ambulate. She was diagnosed to have UTI approximately 3 days back and was on antibiotics but her symptoms were not improving so daughter decided to bring patient to ER. According to daughter patient gets this confusion once in few months and usually has UTI at that time. Currently patient endorses burning while urination, bilateral lower extremity pain. Otherwise she does not have any other complaints. Vitals : Temperature 100.1, pulse 90, RR 16, blood pressure 140/92 on arrival, improved to 182/78, saturating 98% on room air. On exam: Alert, oriented to place, does not answer questions appropriately, pleasantly confused, obese, cooperative, no acute distress, neck supple, JVD normal, no lymphadenopathy, mucosa extremely dry, no focal neurological deficit: Patient does not move bilateral lower extremities, no dependent edema but lower extremity appears swollen nonpitting, no obvious skin rashes or inflammation CVS : S1-S2, RRR, systolic murmur in aortic area radiating to carotid. RS: Clear to auscultate bilaterally bases . Abdomen: Soft, NT, ND, bowel sounds present. CXR: No overt pulmonary edema. Minimal left retrocardiac opacification may represent a degree of atelectasis. Assessment and plan 86-year-old female was brought in ER by her daughter for decreased by mouth intake, weakness, lethargy, unable to ambulate, recently diagnosed UTI on antibiotics. Patient appears even more confused today than she was brought in ER. UA is positive for nitrites and leukocyte esterase, CVA tenderness could not be elicited. Appears simple UTI patient was started on cefdinir outpatient. Patient has previous history of enterococcus in urine. Will continue Unasyn for now. + UTI: Cystitis + Encephalopathy secondary to infection + Bilateral lower extremity pain + History of HLD, HTN, DM, heart failure reduced ejection fraction, COPD, S/P cholecystectomy - Admit to general medicine - Continue gentle hydration - Blood culture, urine culture - Continue IV Unasyn - Continue all oral antihypertensives - Hold oral hypoglycemics, continue sliding scale insulin - OT PT evaluation - Bilateral lower extremity Dopplers - Assess for rehabilitation placement
[2017-10-25 03:14] VITALS: BP 164/100
--- NOTE | 2017-10-25 05:21 | Admission Certification ---
Admission Certification Certification Statement - As attending physician, I certify that at the time of - admission, based on clinical presentation, severity of - symptoms, need for further diagnostic testing and - therapeutic interventions, and risk of adverse outcomes - without in-hospital treatment, in my clinical assessment, - this patient requires an acute hospital stay for a minimum - of two nights or longer. I have also considered psychsocial - factors such as support system, advanced age, financial - issues, cognitive issues, and failed out-patient treatments, - past re-admission history, safety of patient, and lack of - compliance as applicable. Specific rationale supporting this admission is: UTI, encephalopathy
[2017-10-25 06:53] VITALS: BP 154/94
[2017-10-25 08:57] LABS: ABSOLUTE BASOPHIL COUNT 0 /CUMM (0.0-0.2); ABSOLUTE EOSINOPHIL COUNT 0.1 /CUMM (0.0-0.7); ABSOLUTE GRANULOCYTE CT 6.8 /CUMM (1.4-6.5); ABSOLUTE LYMPH COUNT 1.8 /CUMM (1.2-3.4); ABSOLUTE MONOCYTE COUNT 0.7 /CUMM (0.10-0.60); BASOPHIL % 0.4 % (0.0-2.0); EOSINOPHIL % 0.6 % (0-5); GRANULOCYTE % 72.2 % (42.2-75.2); HEMATOCRIT 32.9 % (37-47); MEAN CORPUSCULAR HGB CONC 32.2 G/DL (33.0-37.0); MEAN PLATELET VOLUME 8.6 FL (7.4-10.4); PLATELET COUNT 249 /CUMM (130-400); RBC DISTRIBUTION WIDTH 16.5 % (11.5-14.5); RED BLOOD CELL CT 3.78 /CUMM (4.20-5.40); WHITE BLOOD CELL COUNT 9.4 /CUMM (4.8-10.8)
--- NOTE | 2017-10-25 10:51 | ULTRASOUND REPORT ---
EXAMINATION: BILATERAL LOWER EXTREMITY VENOUS ULTRASOUND CLINICAL INFORMATION: Leg weakness and tenderness. Suspect bilateral lower extremity DVT. COMPARISON: Right lower extremity venous Doppler ultrasound dated 07/10/2017 and bilateral lower extremity venous Doppler ultrasound dated 04/14/2017. TECHNIQUE: Doppler spectral analysis and color flow Doppler imaging was performed of the lower extremities. Compression and augmentation maneuvers were performed. FINDINGS: The right and left common femoral vein, greater saphenous vein takeoff, femoral vein, and popliteal vein are normally compressible with normal augmentation responses and phasic changes seen with Doppler imaging. The midcalf peroneal and posterior tibial veins bilaterally are not visualized. No popliteal cyst is seen. IMPRESSION: No evidence of deep venous thrombosis in the right or left side down to the popliteal bifurcation. Calf veins could not be visualized. Depending on clinical circumstances, follow-up venous Doppler ultrasound in 7-10 days can be performed to exclude proximal clot propagation from a nonvisualized calf vein.
--- NOTE | 2017-10-25 12:14 | PN- Att Addend ---
Attending Addendum Attending Brief Note 86-year-old female past medical history of hypertension, diabetes, COPD who is here with UTI and weakness and failure of outpatient oral antibiotics. She was brought in by her family for weakness, difficulty ambulation and was straight cath for 125 ML of cloudy urine in the ER that had a positive urinalysis. We have her on IV Unasyn and IV fluids. We'll follow the cultures closely although she has been partially treated with by mouth Augmentin. She has grown enterococcus in the past and hence the Unasyn. We'll get a PT eval and follow closely.
[2017-10-25 14:56] VITALS: BP 136/70
[2017-10-25 18:20] VITALS: BP 160/100
[2017-10-25 22:04] VITALS: BP 142/80
[2017-10-26 05:59] VITALS: BP 151/70
--- NOTE | 2017-10-26 07:02 | PN- Housestaff ---
See Addendum Subjective Follow-up For: UTI, encephalopathy Subjective: No overnight events. Patient is very sleepy this morning but seems oriented 2. She is complaining of some mild abdominal pain but no fevers, chest pain or shortness of breath. Review of Systems Constitutional: Reports: no symptoms. EENTM: Reports: no symptoms. Cardiovascular: Reports: no symptoms. Respiratory: Reports: no symptoms. Gastrointestinal: Reports: see HPI. Genitourinary: Reports: no symptoms. Musculoskeletal: Reports: no symptoms. Skin: Reports: no symptoms. Neurological/Psychological: Reports: no symptoms. Hematologic/Endocrine: Reports: no symptoms. Immunologic/Allergic: Reports: no symptoms. Objective Last 24 Hrs of Vital Signs/I&O Vital Signs Date Time Temp Pulse Resp B/P B/P Pulse O2 O2 Flow FiO2 Mean Ox Delivery Rate 10/26 0459 98.6 84 20 151/70 94 10/26 0419 99.6 10/25 2204 99.6 101 20 142/80 93 Room Air 10/25 2130 99.6 10/25 2010 102.8 10/25 1820 102.8 94 20 160/100 94 Room Air 10/25 1456 98.4 87 18 136/70 94 / 1001 81 140/84 Intake & Output 10/26 0800 10/26 0000 10/25 1600 Intake Total 200 670 920 Output Total Balance 200 670 920 Intake, IV 200 470 600 Intake, Oral 200 320 Number 1 2 1 Bowel Movements Patient 131.202 kg Weight Weight Bed scale Measurement Method Physical Exam General Appearance: Alert, Cooperative, No Acute Distress Cardiovascular: Regular Rate, Normal S1, Normal S2, systolic murmur Lungs: Clear to Auscultation Abdomen: Normal Bowel Sounds, Soft, tenderness to palpation Extremities: No Edema, Normal Pulses, no edema, mildly tender bilaterally Current Medications: Current Medications Sig/Chaparro Start time Last Medication Dose Route Stop Time Status Admin Acetaminophen 1,000 MG Q12P PRN 10/26 414 r 10/26 N/A 1 UNIT IV 418 Acetaminophen 1,000 MG ONCE ONE 10/25 2014 DC 10/25 N/A 1 UNIT IV 10/25 Acetaminophen 325 MG Q6 PRN 10/25 0115 DC 10/25 PO 1006 Allopurinol 300 MG DAILY 10/25 09 AC 10/25 PO 0956 Ampicillin Sodium/ 3,000 MG Q6 10/25 1000 DC Sulbactam Sodium IV Sodium Chloride 100 ML Ampicillin Sodium/ 3,000 MG Q6H 10/25 1000 AC / Sulbactam Sodium IV 0409 Sodium Chloride 100 ML Aspirin 81 MG DAILY PRN 10/25 0300 AC PO Atorvastatin Calcium 80 MG 1700 10/25 1700 AC 10/25 PO 1752 Ceftriaxone Sodium 1,000 MG DAILY 10/25 0900 DC 10/25 IV 0956 Clopidogrel Bisulfate 75 MG DAILY 10/25 09 AC 10/25 PO 0956 Enoxaparin Sodium 40 MG DAILY 10/25 09 AC 10/25 SC 0955 Furosemide 20 MG DAILY PRN 10/25 0300 AC 10/25 PO 2216 Insulin Aspart 0 TIDAC 10/25 0800 AC 10/25 SC 1752 Losartan Potassium 50 MG DAILY 10/25 09 AC 10/25 PO 1001 Metoprolol Succinate 12.5 MG DAILY 10/25 09 AC 10/25 PO 0425 Ondansetron HCl 4 MG Q6P PRN 10/25 1900 AC 10/25 IV 1912 Sodium Chloride 1,000 ML Q13H 10/25 0300 DC 05 IV 10/25 1559 0344 Last 24 Hrs of Lab/Festus Results Last 24 Hrs of Labs/Mics: Laboratory Tests 10/25/17 0715: Anion Gap 11, Estimated GFR > 60, BUN/Creatinine Ratio 22.0, Total Bilirubin 1.8 H, Direct Bilirubin 0.6 H, AST 14, ALT 23, Alkaline Phosphatase 60, Total Protein 6.1 L, Albumin 3.5, CBC w Diff NO MAN DIFF REQ, RBC 3.78 L, MCV 87.0, MCH 28.0, MCHC 32.2 L, RDW 16.5 H, MPV 8.6, Gran % 72.2, Lymphocytes % 19.4 L , Monocytes % 7.4, Eosinophils % 0.6, Basophils % 0.4, Absolute Granulocytes 6.8 H, Absolute Lymphocytes 1.8, Absolute Monocytes 0.7 H, Absolute Eosinophils 0.1, Absolute Basophils 0 Microbiology 10/25 2105 BLOOD: Blood Culture - RECD 10/25 2054 BLOOD: Blood Culture - RECD Assessment/Plan Assessment: Ms. Glass is a 86F with PMH of HLD, HTN, DM, heart failure reduced ejection fraction, COPD, S/P cholecystectomy who preesnted with confusion. Problem list: 1. Upper urinary tract infection 2. Encephalopathy secondary to infection 3. Bilateral lower extremity pain #Upper UTI: Patient was febrile yesterday to 102.8. She is on ampicillin/ sulbactam. -Follow cultures -Continue ampicillin/sulbactam #Bilateral lower extremity pain: Patient presented with bilateral lower extremity pain. Dopplers are negative but did not visualize the calf veins. -Continue to monitor #Chronic medical problems: -Continue other home medications DVT prophylaxis with heparin Heart healthy diet DNR/DNI Problem List: 1. UTI (urinary tract infection) Pain Ratin Pain Location: no Pain Goal: Remain pain free Pain Plan: see a/p Tomorrow's Labs & Rationales: no
--- NOTE | 2017-10-26 13:42 | Discharge Summary ---
Visit Information Visit Dates Admission Date: 10/25/17 Discharge Date: 10/30/2017 Hospital Course Course Attending Physician: Delilah Bose MD [facility]: Ms. Glass is a 86-year-old woman with past medical history of hypertension, hyperlipidemia, HFwPEF(EF 65%/2015), COPD, status post cholecystectomy and thyroidectomy was brought to the ED on 11/25/17 by family for increasing weakness and altered mental status. Vital signs at the time of admission -temperature 100.1, pulse 90, respirations 16, blood pressure 102/92, saturating 98% on room air. Blood workup showed H&H 11.7/36 (baseline), total bili 1.4, troponin 0.01. urinalysis showed positive nitrate, positive leukocyte esterase, 15-25 WBC, packed bacteria. On chest x- ray there was no overt pulmonary edema. Minimal left retrocardiac opacification may represent a degree of atelectasis. Patient was admitted to floors. 1. UTI/Acute uncomplicated cystitis:Given her history of Enterococcus in urine, she was treated with IV Unasyn while inpatient. Blood cultures and urine cultures were sent. Blood cultures did not show any growth and urine culture was going Klebsiella pneumonia. We switched IV Unasyn to Augmentin and completed a total 7 days course of antibiotic. 2. Encephalopathy: This was thought to be likely secondary to infection. She was provided with IV hydration (given recent poor PO intake) and IV abx. She was intermittently drowsy so we checked CT scan of the head and MRI. CT scan did not show any evidence of hemorrhage and infarction but MRI did show evidence of chronic ischemic changes. We treated symptomatically, sleep hygiene, physical therapy. 3. Bilateral lower extremity pain: Bilateral doppler obtained remained negative. We will give DVT prophylaxis during the hospitalization. 4. History of HLD, DM, heart failure reduced ejection fraction, COPD: Her home medications were continued. 5. Hypertension -patient had episodes of malignant hypertension, we did check CMP, CT scan as she was complaining of headache. Her BUN/creatinine was within normal limits. CT scan did not show any evidence of infarction or hemorrhage. We added amlodipine to her home regimen. Patient was discharged on tablet 7.5 mg of amlodipine. On discharge was recommended to keep the target of blood pressure between 150/80. Advised to follow-up with PCP within a week of discharge. Disposition. Patient was discharged to short-term rehabilitation. Allergies: Coded Allergies: NO KNOWN ALLERGIES (06/03/12) Disposition Summary Disposition Principal Diagnosis: Acute uncomplicated cystitis Additional Diagnosis: Metabolic encephalopathy Hypertension Hyperlipidemia Diabetes HFwPEF(EF 65%/2016), COPD, status post cholecystectomy and thyroidectomy Discharge Disposition: SNF Discharge Instructions General Discharge Information Code Status: Do Not Resucitate/Intubat Patient's Diet: Heart Healthy Diet Patient's Activity: As tolerated. Follow-Up Instructions/Appts: Please follow up with PCP as an outpatient in 1-2 weeks of discharge. Medications at Discharge Discharge Medications: Continue taking these medications: Metformin HCl (Metformin HCl ER) 500 MG TAB.ER.24 2 Tablet ORAL TWICE DAILY Instructions: Reason to Stop at ADM: ON ISS Comments: NOT GIVEN IN HOSPITAL Allopurinol (Allopurinol) 300 MG TABLET 1 Tablet ORAL DAILY Comments: LAST GIVEN 07/15/17 @ 1200 Valsartan (Valsartan) 80 MG TABLET 1 Tablet ORAL DAILY Qty = 30 Comments: Last Taken: 04/17/17 Time: 9AM PT GIVEN VALSARTAN Glipizide (Glipizide ER) 10 MG TAB.ER.24 1 Tablet ORAL DAILY Qty = 90 Instructions: Reason to Stop at ADM: ON ISS Comments: NOT GIVEN IN HOSPITAL Atorvastatin Calcium (Lipitor) 80 MG TABLET 1 Tablet ORAL DAILY Qty = 30 Comments: LAST GIVEN 07/14/17 @ 1700 Furosemide (Furosemide) 20 MG TABLET 1 Tablet ORAL DAILY as needed for WATER PILL Qty = 15 Comments: Last Taken: 04/14/17 Time: 9PM Clopidogrel Bisulfate (Plavix) 75 MG TABLET 1 Tablet ORAL DAILY Comments: LAST GIVEN 07/15/17 @ 1200 Metoprolol Succinate (Metoprolol Succinate) 25 MG TAB 0.5 Tablet ORAL DAILY Comments: LAST GIVEN 07/15/17 @ 1200 Tramadol HCl (Ultram) 50 MG TABLET 1 Tablet ORAL 2 x Daily as needed as needed for JOINT PAIN Aspirin (Aspirin*) 81 MG TAB.CHEW 1 Tablet ORAL DAILY as needed for HEART Docusate Sodium (Docusate Sodium) 100 MG CAPSULE 1 Tablet ORAL TWICE DAILY as needed for CONSTIPATION Qty = 30 Comments: LAST GIVEN 07/15/17 @ 1200 Polyethylene Glycol 3350 (Miralax) 17 GRAM/DOSE POWDER 17 Gram ORAL DAILY as needed for CONSTIPATION Qty = 1 Comments: LAST GIVEN 07/15/17 @ 1200 Sennosides/Docusate Sodium (Senna-Time S Tablet) 8.6 MG-50 MG TABLET 1 Tablet ORAL AT BEDTIME as needed for CONSTIPATION Qty = 30 Start taking the following new medications: Amlodipine (Norvasc) 2.5 MG TABLET 7.5 Milligram ORAL DAILY Qty = 30 No Refills Copies To: Gil Nelson MD Attending MD Review Statement Documenting Attending: Delilah Bose MD
[2017-10-26 15:27] VITALS: BP 140/68
[2017-10-26 23:08] VITALS: BP 182/80
[2017-10-27 02:32] VITALS: BP 137/76
[2017-10-27 06:51] VITALS: BP 151/99
--- NOTE | 2017-10-27 07:16 | PN- Housestaff ---
Juan Carlos Campo 10/27/17 0715: Subjective Follow-up For: #Upper urinary tract infection #Encephalopathy secondary to infection- resolving #Bilateral lower extremity pain Subjective: Patient spiked a fever yesterday evening Tmax 100.7. Patient lethargic and unable to answer questions early this morning. Her mental status is now improving late morning. She reports lower back pain and remains incontinent. She denies fever, chills, nausa, vomiting. Daughter at bedside reports patient not at baseline with ambulation and worsening forgetfulness Review of Systems Constitutional: Reports: see HPI. Objective Last 24 Hrs of Vital Signs/I&O Vital Signs Date Time Temp Pulse Resp B/P B/P Pulse O2 O2 Flow FiO2 Mean Ox Delivery Rate 10/27 0949 98.7 72 18 168/70 94 Room Air 10/27 0651 99.9 83 20 151/99 94 Room Air 10/27 0232 99.4 93 20 137/76 94 Room Air 10/26 2308 100.7 101 20 182/80 92 Room Air 10/26 2305 100 180/80 10/26 1527 97.4 92 20 140/68 94 Room Air Intake & Output 10/27 1600 08 0800 / 0000 Intake Total 380 370 Output Total 950 Balance -570 370 Intake, IV 260 130 Intake, Oral 120 240 Output, Urine 950 Physical Exam General Appearance: Lethargic HEENT: Atraumatic, PERRLA, EOMI, Mucous Membr. moist/pink Neck: Supple, No JVD, No thryomegaly Cardiovascular: Regular Rate, Normal S1, Normal S2 Lungs: Clear to Auscultation, Normal Air Movement Abdomen: Normal Bowel Sounds, Soft, BL lower lumbar tenderness Extremities: No Edema Other Physical Findings: BL lower lumbar and flank pain Current Medications: Current Medications Sig/Chaparro Start time Last Medication Dose Route Stop Time Status Admin Acetaminophen 1,000 MG Q12P PRN 10/26 0415 AC 10/26 N/A 1 UNIT IV 0419 Allopurinol 300 MG DAILY 10/25 0900 AC 10/27 PO 0957 Amoxicillin/ 875 MG Q12 10/27 1018 AC Clavulanate Potassium PO Ampicillin Sodium/ 3,000 MG Q6H 10/25 1000 DC 10/27 Sulbactam Sodium IV 0958 Sodium Chloride 100 ML Aspirin 81 MG DAILY PRN 10/25 0300 AC PO Atorvastatin Calcium 80 MG 1700 10/25 1700 AC 10/26 PO 1730 Clopidogrel Bisulfate 75 MG DAILY 10/25 0900 AC 10/27 PO 0957 Enoxaparin Sodium 40 MG DAILY 10/25 09 AC 10/27 SC 0957 Furosemide 20 MG DAILY PRN 10/25 0300 AC 10/25 PO 2216 Insulin Aspart 0 TIDAC 10/25 08 AC 10/27 SC 0828 Losartan Potassium 50 MG DAILY 10/25 09 AC 10/27 PO 0957 Melatonin 5 MG AT BEDTIME 10/26 2100 AC 10/26 PO 2132 Metoprolol Succinate 12.5 MG DAILY 10/25 899 AC 10/27 PO 0957 Metoprolol Tartrate 12.5 MG ONCE ONE 10/26 2145 DC 10/26 PO 10/26 214 2305 Ondansetron HCl 4 MG Q6P PRN 10/25 190 AC 10/25 IV 1912 Patient Medication 1 ED ONE ONE 10/26 1545 DC 10/26 Teaching ED 10/26 1546 1544 Last 24 Hrs of Lab/Festus Results Last 24 Hrs of Labs/Mics: Laboratory Tests 10/27/17 0935: pH 7.48 H, pCO2 39, pO2 88, HCO3 28, ABG O2 Sat (Measured) 96.0, P-50 (Temp Corrected) N, Carboxyhemoglobin 0.1 L, O2 Concentration % .21, O2 Delivery Method RA, Phlebotomy Draw Site RIGHT RADIAL Assessment/Plan Assessment: Ms. Glass is a 86F with PMH of HLD, HTN, DM, heart failure reduced ejection fraction, COPD, S/P cholecystectomy who presented with confusion. Problem list: #Upper urinary tract infection positive for Klebsiella #Encephalopathy secondary to infection - resolving #Bilateral lower extremity pain Plan: We will obtain ABG for worsening AMS We will transition IV Unasyn to Augmentin We will continue all other meds Continue PT OOB to chair and ambulate as tolerated Pain: IV Acetaminophen Diet: Regular DVT ppx: Enoxaparin Code: DNR/I Dispo: Pending PT Problem List: 1. Lethargy 2. UTI (urinary tract infection) Pain Ratin Pain Location: Lumbar/Flank Pain Goal: Pain 4 or less Pain Plan: IV Acetaminophen Tomorrow's Labs & Rationales: none Delilah Bose MD 10/27/17 1122: Attending MD Review Statement Attending Statement Attending MD Statement: examined this patient, discuss w/resident/PA/TOMB MAKER HELPER, agreed w/resident/PA/TOMB MAKER HELPER, discussed with family, reviewed EMR data (avail), discussed with nursing, discussed with case mgmt, reviewed images, amended to note Attending Assessment/Plan: Patient seen and examined, she is much more awake today. Daughter is at bedside. She still somewhat confused but better than before but not back to baseline. Vital Signs Date Time Temp Pulse Resp B/P B/P Pulse O2 O2 Flow FiO2 Mean Ox Delivery Rate 10/27 948 98.7 72 18 168/70 94 Room Air 10/27 0651 99.9 83 20 151/99 94 Room Air 10/27 0232 99.4 93 20 137/76 94 Room Air 10/26 2308 100.7 101 20 182/80 92 Room Air 10/26 2305 100 180/80 10/26 1527 97.4 92 20 140/68 94 Room Air on exam; aox1, nad. cv; s1,s2 rrr resp; clear abd; soft, nt, bs+ ext: no edema Laboratory Tests 10/27 934 Blood Gas pH (7.35 - 7.45 PH) 7.48 H pCO2 (35 - 45 TORR) 39 pO2 (80 - 100 TORR) 88 HCO3 (21 - 28 MEQ/L) 28 ABG O2 Sat (Measured) (>96.0 %) 96.0 P-50 (Temp Corrected) N Carboxyhemoglobin (1.5 - 5.0 %) 0.1 L O2 Concentration % .21 O2 Delivery Method RA Miscellaneous Phlebotomy Draw Site RIGHT RADIAL A/P; 86 y/o F with pmh sig for hypertension, hyperlipidemia, HFwPEF(EF 65%/2016) , COPD, status post cholecystectomy and thyroidectomy admitted for generalized weakness and altered mental status likely secondary to metabolic encephalopathy from a UTI. Urine culture grew Klebsiella. ABG obtained which was normal. Patient will be switched to oral antibiotic. We will try to leave and her. We will try to get out of bed to chair. If her mental status does not get cleared with above measures, will try to rule out any intracranial causes. Patient not on any benzodiazepines or narcotics. Will avoid delirium triggers. Continue other current meds. DVT px; Lovenox. Patient to work with PT. D/W patient's daughter at bedside.
[2017-10-27 09:49] VITALS: BP 168/70
[2017-10-27 14:05] VITALS: BP 132/74
[2017-10-27 23:11] VITALS: BP 130/90
[2017-10-28 07:18] VITALS: BP 130/70
--- NOTE | 2017-10-28 07:39 | PN- Housestaff ---
Juan Carlos Campo 10/28/17 0739: Subjective Follow-up For: #Upper urinary tract infection #Encephalopathy secondary to infection- resolving #Bilateral lower extremity pain Subjective: Patient very lethargic because was not able to sleep overnight. Review of Systems Constitutional: Reports: see HPI. Objective Last 24 Hrs of Vital Signs/I&O Vital Signs Date Time Temp Pulse Resp B/P B/P Pulse O2 O2 Flow FiO2 Mean Ox Delivery Rate 10/28 717 98.2 79 20 130/70 94 Room Air 10/27 2311 99.7 89 29 130/90 96 Room Air 10/27 1405 98.5 93 18 132/74 93 Room Air 10/27 1230 99.1 10/27 0949 98.7 72 18 168/70 94 Room Air Intake & Output 10/28 0810/28 0000 10/27 1600 Intake Total 240 240 485 Output Total Balance 240 240 485 Intake, IV 125 Intake, Oral 240 240 360 Physical Exam General Appearance: Lethargic HEENT: Atraumatic, PERRLA, EOMI, Mucous Membr. moist/pink Cardiovascular: Regular Rate, Normal S1, Normal S2 Lungs: Clear to Auscultation, Normal Air Movement Abdomen: Normal Bowel Sounds, Soft, No Tenderness Current Medications: Current Medications Sig/Chaparro Start time Last Medication Dose Route Stop Time Status Admin Acetaminophen 1,000 MG .STK-MED ONE 10/274 DC IV 10/27 2225 Acetaminophen 1,000 MG Q12P PRN 10/26 0415 10/27 N/A 1 UNIT IV 2225 Allopurinol 300 MG DAILY 10/25 899 AC 10/27 PO 0957 Amoxicillin/ 875 MG Q12 10/27 1018 AC 10/27 Clavulanate Potassium PO 2033 Ampicillin Sodium/ 3,000 MG Q6H 10/25 1000 DC 05/08 Sulbactam Sodium IV 0958 Sodium Chloride 100 ML Aspirin 81 MG DAILY PRN 10/25 0300 AC PO Atorvastatin Calcium 80 MG 1700 10/25 1700 AC 10/27 PO 1759 Clopidogrel Bisulfate 75 MG DAILY 10/25 09 AC 10/27 PO 0957 Enoxaparin Sodium 40 MG DAILY 10/25 0900 AC 10/27 SC 0957 Furosemide 20 MG DAILY PRN 10/25 0300 AC 10/25 PO 2216 Insulin Aspart 0 TIDAC 10/25 08 AC 10/27 SC 1759 Losartan Potassium 50 MG DAILY 10/25 899 AC 10/27 PO 956 Melatonin 5 MG AT BEDTIME 10/26 2100 AC 10/27 PO 2032 Metoprolol Succinate 12.5 MG DAILY 10/25 899 AC 10/27 PO 956 Ondansetron HCl 4 MG Q6P PRN 10/25 1900 AC 10/25 IV 1912 Last 24 Hrs of Lab/Festus Results Last 24 Hrs of Labs/Mics: Laboratory Tests 10/27/1735: pH 7.48 H, pCO2 39, pO2 88, HCO3 28, ABG O2 Sat (Measured) 96.0, P-50 (Temp Corrected) N, Carboxyhemoglobin 0.1 L, O2 Concentration % .21, O2 Delivery Method RA, Phlebotomy Draw Site RIGHT RADIAL Assessment/Plan Assessment: Ms. Glass is a 86F with PMH of HLD, HTN, DM, heart failure reduced ejection fraction, COPD, S/P cholecystectomy who presented with confusion. Problem list: #Upper urinary tract infection positive for Klebsiella #Encephalopathy secondary to infection - resolving #Bilateral lower extremity pain Plan: We will obtain CT head to r/o acute pathology Continue Augmentin We will continue all other meds Continue PT OOB to chair and ambulate as tolerated Pain: IV Acetaminophen Diet: Regular DVT ppx: Enoxaparin Code: DNR/I Dispo: STR Problem List: 1. UTI (urinary tract infection) 2. Fall Pain Ratin Pain Location: NA Pain Goal: Remain pain free Pain Plan: NA Tomorrow's Labs & Rationales: none Delilah Bose MD 10/28/17 1220: Attending MD Review Statement Attending Statement Attending MD Statement: examined this patient, discuss w/resident/PA/SPRING UP SUPERVISOR, agreed w/resident/PA/SPRING UP SUPERVISOR, reviewed EMR data (avail), discussed with nursing, discussed with case mgmt, reviewed images, amended to note Attending Assessment/Plan: Patient seen and examined, she was sleepy this morning. Physical therapy was working with her and according to their evaluation she was leaning towards her left. Patient was able to move all 4 extremities. She did follow commands appropriately. There was some concern for possible intracranial event therefore a CT head was obtained which was negative for any acute intracranial process. Vital Signs Date Time Temp Pulse Resp B/P B/P Pulse O2 O2 Flow FiO2 Mean Ox Delivery Rate 10/28 1044 Room Air 10/28 0718 98.2 79 20 130/70 94 Room Air 10/27 2311 99.7 89 29 130/90 96 Room Air 10/27 1405 98.5 93 18 132/74 93 Room Air 10/27 1230 99.1 on exam; Was sleeping but woke up. cv; s1,s2 rrr resp; clear abd; soft, nt, bs+ ext; no edema No labs. A/P; 86 y/o F with pmh sig for hypertension, hyperlipidemia, HFwPEF(EF 65%/2015) , COPD, status post cholecystectomy and thyroidectomy admitted for generalized weakness and altered mental status likely secondary to metabolic encephalopathy from a UTI. Urine culture grew Klebsiella. ABG obtained which was normal. CT head obtained today which was also negative for any acute intracranial process. It does show sphenoid sinusitis the patient on Augmentin already. Please obtain BEP today to make sure electrolytes are normal. Patient should be oriented. She should be getting out of bed to chair. We'll continue to avoid benzos, narcotics, all other delirium triggers. Patient on Lovenox for DVT prophylaxis. She needs to go to rehabilitation upon discharge and there is a bed available which would be likely tomorrow. Left a msg for daughter.
--- NOTE | 2017-10-28 08:02 | Patient Discharge Instructions ---
Discharge Instructions General Discharge Information You were seen/treated for: AMS UTI Hypertensive urgency You had these procedures: none Special Instructions: Follow up with PCP within 1 week of discharge You have been started on a new medication for your high blood pressure Diet Recommended Diet: Heart Healthy Activity Other activity limits: As tolerated Acute Coronary Syndrome Inclusion Criteria At DC or during hospital stay patient has or had the following: ACS DIAGNOSIS No Discharge Core Measures Meds if any: Prescribed or Continued at Discharge Meds if any: NOT Prescribed or Continued at Discharge Congestive Heart Failure Inclusion Criteria At DC or during hospital stay patient has or had the following: CHF DIAGNOSIS No Discharge Core Measures Meds if any: Prescribed or Continued at Discharge Meds if any: NOT Prescribed or Continued at Discharge Cerebrovascular accident Inclusion Criteria At DC or during hospital stay patient has or had the following: CVA/TIA Diagnosis No Discharge Core Measures Meds if any: Prescribed or Continued at Discharge Meds if any: NOT Prescribed or Continued at Discharge Venous thromboembolism Inclusion Criteria VTE Diagnosis No VTE Type NONE VTE Confirmed by (Test) NONE Discharge Core Measures - Per Current guidelines, there needs to be overlap - treatment for the first 5 days of Warfarin therapy. - If discharged on Warfarin prior to 5 days of - overlap therapy, the patient will need to be - assessed for post discharge needs including - *Post discharge parental anticoagulation - *Warfarin and/or parental anticoagulation education - *Follow up date to check INR post discharge At least 5 days overlap therapy as Inpatient No Meds if any: Prescribed or Continued at Discharge Note: Overlap Therapy is Warfarin and Anticoagulant Meds if any: NOT Prescribed or Continued at Discharge
--- NOTE | 2017-10-28 11:18 | Event Note ---
Event Note Event Note: Situation - we were told by the physical therapist that patient is leaning towards the left side. Background - Patient is a 86-year-old female with past medical history of hypertension, hyperlipidemia, HFwPEF(EF 65%/2016), COPD, status post cholecystectomy and thyroidectomy was brought to the ED by family for increasing weakness and altered mental status. Assessment - Vital signs -temperature 98.2, pulse 80, blood pressure 130/80. On neurological examination -patient was conscious and cooperative and following all commands, moving all her limbs, able to complete sentences, cranial nerves were intact,but needs support when sitting. Plan - CT scan of the head stat. We will treat according to the finding on the CT scan.
--- NOTE | 2017-10-28 11:52 | CT SCAN REPORT ---
EXAMINATION: CT HEAD WITHOUT CONTRAST CLINICAL INFORMATION: Mental status change COMPARISON: 07/12/2017 CT scan TECHNIQUE: Contiguous axial imaging was performed from the skull base to vertex without intravenous administration of contrast. DLP: 614.03 mGy-cm FINDINGS: There is no evidence of acute intracranial hemorrhage or territorial infarction. 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 There are scattered and confluent bilateral periventricular and deep white matter hypodensities, nonspecific findings and likely represent chronic ischemic changes of the small vessel disease. Small old lacunar infarcts in the bilateral basal ganglia noted. No abnormal mass effect or midline shift is seen. Cuello to white matter differentiation is well preserved. No extra-axial fluid collections are identified. The ventricles are symmetric and age appropriate. Atherosclerotic calcifications of the cavernous parts of the bilateral internal carotid arteries noted. There is moderate mucosal thickening of the right sphenoid sinus. No air-fluid level. The osseous structures and soft tissues are normal. The mastoid air cells and visualized portions of the paranasal sinuses are otherwise well aerated. IMPRESSION: No acute intracranial hemorrhage or sign of acute territorial ischemia. Chronic findings as above. Right sphenoid sinusitis.
[2017-10-28 14:24] VITALS: BP 198/108
[2017-10-28 16:01] VITALS: BP 199/93
[2017-10-28 18:48] VITALS: BP 169/72
[2017-10-28 22:05] VITALS: BP 130/60
[2017-10-29 06:28] VITALS: BP 152/80
--- NOTE | 2017-10-29 08:11 | PN- Housestaff ---
Juan Carlos Campo 10/29/17 0811: Subjective Follow-up For: #Upper urinary tract infection #Encephalopathy secondary to infection- resolving #Bilateral lower extremity pain Subjective: Patient continues to be very lethargic and complained of a HARRISON. Denies blurry vision, weakness or presyncope Review of Systems Constitutional: Reports: see HPI. Objective Last 24 Hrs of Vital Signs/I&O Vital Signs Date Time Temp Pulse Resp B/P B/P Pulse O2 O2 Flow FiO2 Mean Ox Delivery Rate 10/29 0857 90 208/102 10/29 0856 90 208/102 10/29 0628 98.6 92 20 152/80 96 10/28 2205 98.4 86 18 130/60 93 Room Air 10/28 1848 99.2 71 169/72 10/28 1701 70 199/100 10/28 1601 70 199/93 96 10/28 1424 98.2 77 18 198/108 94 Room Air 10/28 1229 80 200/102 10/28 1227 80 200/102 10/28 1044 Room Air Intake & Output 10/29 1600 10/29 0800 10/29 0000 Intake Total 490 Output Total Balance 490 Intake, IV 10 Intake, Oral 480 Number 0 Bowel Movements Physical Exam General Appearance: Lethargic but oriented to person and place HEENT: Atraumatic, PERRLA, EOMI, Mucous Membr. moist/pink Cardiovascular: Regular Rate, Normal S1, Normal S2 Lungs: Clear to Auscultation, Normal Air Movement Extremities: No Edema Current Medications: Current Medications Sig/Chaparro Start time Last Medication Dose Route Stop Time Status Admin Acetaminophen 650 MG ONCE ONE 10/28 1745 DC 10/28 PO 10/28 1746 1759 Acetaminophen 1,000 MG Q12P PRN 10/26 0415 AC 10/28 N/A 1 UNIT IV 2200 Allopurinol 300 MG DAILY 10/25 09 AC 10/29 PO 0856 Amlodipine Besylate 5 MG DAILY 10/29 0902 AC PO Amlodipine Besylate 5 MG ONCE ONE 10/28 1430 DC 10/28 PO 10/28 1431 1701 Amoxicillin/ 875 MG Q12 10/27 1018 AC 10/29 Clavulanate Potassium PO 0856 Aspirin 81 MG DAILY PRN 10/25 0300 AC PO Atorvastatin Calcium 80 MG 1700 10/25 1700 AC 10/28 PO 1701 Bisacodyl 10 MG DAILY 10/28 1619 AC 10/29 PO 0856 Clopidogrel Bisulfate 75 MG DAILY 10/25 899 AC 10/29 PO 0856 Enoxaparin Sodium 40 MG DAILY 10/25 899 AC 10/29 SC 0856 Furosemide 20 MG DAILY PRN 10/25 0300 AC 10/25 PO 2216 Insulin Aspart 0 TIDAC 10/26 799 AC 10/29 SC 0855 Losartan Potassium 50 MG DAILY 10/25 899 AC 10/29 PO 0856 Melatonin 5 MG AT BEDTIME 10/26 2100 AC 10/28 PO 2111 Metoprolol Succinate 12.5 MG DAILY 10/25 899 AC 10/29 PO 0857 Ondansetron HCl 4 MG Q6P PRN 10/25 1900 AC 10/25 IV 1912 Patient Medication 1 ED ONE ONE 10/28 1230 DC 10/28 Teaching ED 10/28 1231 1229 Senna 187 MG AT BEDTIME 10/28 2100 AC 10/28 PO 2111 Last 24 Hrs of Lab/Festus Results Last 24 Hrs of Labs/Mics: Laboratory Tests 10/28/17 1820: Anion Gap 12, Estimated GFR > 60, BUN/Creatinine Ratio 16.7 Assessment/Plan Assessment: Ms. Glass is a 86F with PMH of HLD, HTN, DM, heart failure reduced ejection fraction, COPD, S/P cholecystectomy who presented with confusion. Problem list: #Upper urinary tract infection positive for Klebsiella #Encephalopathy secondary to infection - resolving #Bilateral lower extremity pain #Hypertensive urgency Plan: We will obtain MRI to r/o acute pathology given her hypertensive state Continue Augmentin for 1 more day We will add Amlodipine 5 mg and continue her Losartan and Metoprolol We will continue all other meds Continue PT OOB to chair and ambulate as tolerated Pain: IV Acetaminophen Diet: Regular DVT ppx: Enoxaparin Code: DNR/I Dispo: STR Problem List: 1. UTI (urinary tract infection) 2. Lethargy Pain Ratin Pain Location: NA Pain Goal: Remain pain free Pain Plan: NA Tomorrow's Labs & Rationales: none Delilah Bose MD 10/29/17 1159: Attending MD Review Statement Attending Statement Attending MD Statement: examined this patient, discuss w/resident/PA/SHARED SERVICES AND OUTSOURCING MANAGER, agreed w/resident/PA/SHARED SERVICES AND OUTSOURCING MANAGER, discussed with family, discussed with nursing, discussed with case mgmt, reviewed images, amended to note Attending Assessment/Plan: Patient seen and examined, was awake this morning. Blood pressure is very high. Norvasc was added yesterday. Blood pressure continues to remain high. We have obtained head MRI which is negative for any acute intracranial event. Vital Signs Date Time Temp Pulse Resp B/P B/P Pulse O2 O2 Flow FiO2 Mean Ox Delivery Rate 10/29 1027 88 198/100 10/29 1012 Room Air 10/29 1011 Room Air 10/29 0940 90 208/102 10/29 0857 90 208/102 10/29 0856 90 208/10/29 0628 98.6 92 20 152/80 96 10/28 2205 98.4 86 18 130/60 93 Room Air 10/28 1848 99.2 71 169/72 10/28 1701 70 199/100 10/28 1601 70 199/93 96 10/28 1424 98.2 77 18 198/108 94 Room Air 10/28 1229 80 200/102 10/28 1227 80 200/102 on exam; aox3, nad. cv; s1,s2, rrr resp; clear abd; soft, nt, bs+ ext; no edema Laboratory Tests 10/28 1820 Chemistry Sodium (137 - 145 mmol/L) 137 Potassium (3.5 - 5.1 mmol/L) 3.9 Chloride (98 - 107 mmol/L) 100 Carbon Dioxide (22 - 30 mmol/L) 26 Anion Gap (5 - 16) 12 BUN (7 - 17 mg/dL) 10 Creatinine (0.5 - 1.0 mg/dL) 0.6 Estimated GFR (>60 ml/min) > 60 BUN/Creatinine Ratio (7 - 25 %) 16.7 Phosphorus (2.5 - 4.5 mg/dL) 3.6 Magnesium (1.6 - 2.3 mg/dL) 1.5 L A/P: 86 y/o F with pmh sig for hypertension, hyperlipidemia, HFwPEF(EF 65%/2015) , COPD, status post cholecystectomy and thyroidectomy admitted for generalized weakness and altered mental status likely secondary to metabolic encephalopathy from a UTI. Patient has been treated with antibiotics and the course is almost going to be finished. Patient remained somewhat confused and lower than her baseline. We have done extensive workup including checking blood gas which was normal, checking CT of the head as well as MRI of the brain which was also negative for any acute intracranial event. Patient has uncontrolled hypertension and hypertensive urgency. We have added Norvasc. He can go up on the dose of Norvasc to 10 mg to better control the blood pressure. Goal blood pressure should not be lowered to less than 150- 160 systolic. Patient should continue to work with physical therapy. We'll continue daily orientation. Patient is not on any benzo, narcotics. Will continue to avoid delirium triggers. Please replete her magnesium. Patient on Lovenox for DVT prophylaxis.
[2017-10-29] MEDS ORDERED: AUGMENTIN 875-1 EACH PO (08:15)
[2017-10-29 10:27] VITALS: BP 198/100
--- NOTE | 2017-10-29 11:48 | MRI REPORT ---
EXAMINATION: MR BRAIN WITHOUT CONTRAST CLINICAL INFORMATION: 86-year-old woman with hypertension and confusion. COMPARISON: 10/28/[address], 04/16/2017 brain MRI TECHNIQUE: MRI of the brain without contrast was obtained using routine sequences. FINDINGS: Patchy and confluent T2 hyperintense signal is again seen throughout the supratentorial white matter with areas of chronic lacunar infarction in both basal ganglia and thalami. A larger area of chronic infarction in the right occipital lobe is again noted, with cystic encephalomalacia, laminar necrosis, and marginal gliosis. There is ex vacuo dilation of the lateral ventricles. No focal reduced diffusion is seen to suggest acute or subacute cerebral ischemia. No intracranial mass, intracerebral edema, intra-axial blood products, midline shift, or extra-axial collection is visualized. Normal arterial and venous vascular flow voids are present. There is polypoid mucosal thickening in the sphenoid sinus. IMPRESSION: No imaging evidence of acute cerebral ischemia or hemorrhage. Extensive chronic ischemic changes as described.
[2017-10-29 14:54] VITALS: BP 142/84
[2017-10-29 22:05] VITALS: BP 188/84
[2017-10-29 22:06] VITALS: BP 188/84
[2017-10-29 23:56] VITALS: BP 170/90
[2017-10-30 06:30] VITALS: BP 180/84
[2017-10-30 07:28] VITALS: BP 127/73
[2017-10-30 08:00] VITALS: BP 162/90
--- NOTE | 2017-10-30 08:15 | PN- Housestaff ---
See Addendum Subjective Follow-up For: #Upper urinary tract infection #Encephalopathy secondary to infection- resolving #Bilateral lower extremity pain Subjective: Patient very lethargic but reports she didn't sleep well overnight. She denies blurry vision, SOB, CP, nausea, vomiting, HARRISON, urinary frequency, burning sensation or bowel symptoms Review of Systems Constitutional: Reports: see HPI. Objective Last 24 Hrs of Vital Signs/I&O Vital Signs Date Time Temp Pulse Resp B/P B/P Pulse O2 O2 Flow FiO2 Mean Ox Delivery Rate 10/30 1027 162/10/30 1027 162/10/30 0852 162/10/30 0800 98.0 81 20 162/10/30 0630 98.0 81 20 180/84 94 Room Air 10/29 2356 170/90 10/29 2206 98.3 86 20 188/84 98 Room Air 10/29 2205 188/84 10/29 1454 97.8 82 16 142/84 92 Room Air Intake & Output 10/30 1600 10/30 0800 10/30 0000 Intake Total 200 240 840 Output Total 200 Balance 0 240 840 Intake, IV 100 Intake, Oral 200 240 740 Number 1 Bowel Movements Output, Urine 200 Physical Exam General Appearance: lethargic, oriented to person and place HEENT: Atraumatic, PERRLA, EOMI, Mucous Membr. moist/pink Cardiovascular: Regular Rate, Normal S1, Normal S2 Lungs: Clear to Auscultation, Normal Air Movement Abdomen: Normal Bowel Sounds, Soft, No Tenderness Extremities: No Edema Current Medications: Current Medications Sig/Chaparro Start time Last Medication Dose Route Stop Time Status Admin Acetaminophen 1,000 MG Q12P PRN 10/26 0415 AC 10/30 N/A 1 UNIT IV 0916 Allopurinol 300 MG DAILY 10/25 09 AC 10/30 PO 0851 Amlodipine Besylate 7.5 MG DAILY 10/30 09 AC 10/30 PO 1027 Amlodipine Besylate 5 MG ONCE ONE 10/29 1400 CAN PO 10/29 1401 Amlodipine Besylate 5 MG DAILY 10/29 0902 DC 10/29 PO 0940 Amoxicillin/ 875 MG Q12 10/27 1018 DC 10/29 Clavulanate Potassium PO 10/29 2300 2054 Aspirin 81 MG DAILY PRN 10/25 0300 AC PO Atorvastatin Calcium 80 MG 1700 10/25 1700 AC 10/29 PO 1651 Bisacodyl 10 MG DAILY 10/28 1619 AC 10/30 PO 0852 Clopidogrel Bisulfate 75 MG DAILY 10/25 0900 AC 10/30 PO 0852 Enoxaparin Sodium 40 MG DAILY 10/25 0900 AC 10/30 SC 0853 Furosemide 20 MG DAILY PRN 10/25 0300 AC 10/25 PO 2216 Insulin Aspart 0 TIDAC 10/25 0800 AC 10/30 SC 0833 Losartan Potassium 50 MG DAILY 10/25 0900 AC 10/30 PO 0852 Magnesium Oxide 400 MG BID 10/29 1447 AC 10/30 PO 10/30 2101 0852 Melatonin 5 MG AT BEDTIME 10/26 2100 AC 10/29 PO 2053 Metoprolol Succinate 12.5 MG DAILY 10/25 09 AC 10/30 PO 1027 Ondansetron HCl 4 MG Q6P PRN 10/25 1900 AC 10/25 IV 1912 Patient Medication 1 ED ONE ONE 10/29 1645 DC Teaching ED 10/29 1646 Potassium Chloride 40 MEQ ONCE ONE 10/29 1500 DC 10/29 PO 10/29 1501 1651 Senna 187 MG AT BEDTIME 10/28 2100 AC 10/29 PO 2053 Assessment/Plan Assessment: Ms. Glass is a 86F with PMH of HLD, HTN, DM, heart failure reduced ejection fraction, COPD, S/P cholecystectomy who presented with confusion. Problem list: #Upper urinary tract infection positive for Klebsiella #Encephalopathy secondary to infection - resolving #Bilateral lower extremity pain #Hypertensive urgency Plan: CT head and MRI r/o acute pathology Augmentin completed Continue Amlodipine 7.5 mg and continue her Losartan and Metoprolol We will continue all other meds Continue PT OOB to chair and ambulate as tolerated Pain: IV Acetaminophen Diet: Regular DVT ppx: Enoxaparin Code: DNR/I Problem List: 1. UTI (urinary tract infection) 2. Lethargy 3. Hypertensive urgency Pain Ratin Pain Location: NA Pain Goal: Remain pain free Pain Plan: NA Tomorrow's Labs & Rationales: none
[2017-10-30] MEDS ORDERED: NORVASC2.5 M1 PO (10:49)
[2017-10-30 11:48] VITALS: BP 140/72
[2017-10-30] MEDS ORDERED: ACETAMINOPHEN650 M3 PO (11:55)
== END 2017-10-30 13:35 | DRG 689 ==
LOC: ERH 21:23 → 2NB 10-25 00:44 → ERHI 10-25 00:44 → ENRESERV 10-25 01:29 → 2NB 10-25 03:01 → ENPENDDIS 10-30 10:55 → 2NB 10-30 13:35
PROVIDERS: Pediatrics; Student in an Organized Health Care Education/Training Program
DX: N30.00 Acute cystitis without hematuria (principal); G93.41 Metabolic encephalopathy; E11.8 Type 2 diabetes mellitus with unspecified complications; I11.0 Hypertensive heart disease with heart failure; I50.32 Chronic diastolic (congestive) heart failure; J44.9 Chronic obstructive pulmonary disease, unspecified; Z79.84 Long term (current) use of oral hypoglycemic drugs; R26.2 Difficulty in walking, not elsewhere classified; E66.9 Obesity, unspecified; Z68.36 Body mass index [BMI] 36.0-36.9, adult; M79.605 Pain in left leg; M79.604 Pain in right leg; I16.0 Hypertensive urgency; B96.1 Klebsiella pneumoniae [K. pneumoniae] as the cause of diseases classified elsewhere; E78.5 Hyperlipidemia, unspecified; Z90.49 Acquired absence of other specified parts of digestive tract; E89.0 Postprocedural hypothyroidism; Z79.82 Long term (current) use of aspirin; H26.9 Unspecified cataract; H91.90 Unspecified hearing loss, unspecified ear; Z91.81 History of falling; R32 Unspecified urinary incontinence
CPT/HCPCS: 2NSBP; 70551; 87476; 36415; 71045; 81001; 82436; 87040; 87086; 93005; 93010; 93970; 96374; 97112-GO; 97162-GP; 97530-GO; J0131; J0696; J1650; J2405

== ENCOUNTER 2017-12-02 11:12 | Observation (INO) | payer OTHER, MEDICARE ==
[~2017-12-02] VITALS: Ht 157.5 cm; Wt 99.8 kg
[~2017-12-02 11:12] MED LIST changes: +ACETAMINOPHEN650 M3 PO; +AUGMENTIN 875-1 EACH PO; +NORVASC2.5 M1 PO
[2017-12-02] MEDS ORDERED: SENNA S TABLET1 EACH PO (11:26)
--- NOTE | 2017-12-02 11:28 | ED GENERAL ADULT ---
History of Present Illness General Chief Complaint: Syncope and Near-Syncope Stated Complaint: BIBA FOR NEAR SYNCOPE Source: patient Exam Limitations: no limitations Vital Signs & Intake/Output Vital Signs & Intake/Output Vital Signs Date Time Temp Pulse Resp B/P B/P Pulse O2 O2 Flow FiO2 Mean Ox Delivery Rate 12/03 1045 98.6 90 19 122/62 97 Room Air 12/03 0955 97.2 85 18 120/55 12/03 0955 97.2 85 18 120/55 12/03 0955 97.2 85 18 120/55 12/03 0845 Room Air 12/03 0612 97.2 85 18 120/55 96 Room Air 12/03 0205 98.0 85 17 151/65 96 Room Air 12/02 2258 98.2 82 16 119/59 97 Room Air 12/02 1946 98.4 12/02 1824 100.2 104 16 145/65 95 Room Air 12/02 1624 98.5 100 16 160/74 97 Room Air ED Intake and Output 12/03 0000 12/02 1200 Intake Total 0 Output Total 300 Balance -300 Intake, Oral 0 Output, Urine 300 Patient 220 lb Weight Weight Reported by Patient Measurement Method Allergies Coded Allergies: NO KNOWN ALLERGIES (06/03/12) Reconcile Medications Allopurinol 300 MG TABLET 1 TAB PO DAILY GOUT (Reported) Amlodipine (Norvasc) 2.5 MG TABLET 7.5 MG PO DAILY Hypertension Aspirin (Aspirin*) 81 MG TAB.CHEW 1 TAB PO DAILY HEART HEALTH (Reported) Atorvastatin Calcium (Lipitor) 80 MG TABLET 1 TAB PO DAILY CHOLESTEROL ( Reported) Clopidogrel Bisulfate (Plavix) 75 MG TABLET 1 TAB PO DAILY BLOOD THINNER ( Reported) Furosemide 20 MG TABLET 1 TAB PO DAILY WATER RETENTION (Reported) Glipizide (Glipizide ER) 10 MG TAB.ER.24 1 TAB PO DAILY DIABETES (Reported) Reason to Stop at ADM: ON ISS Metformin HCl (Metformin HCl ER) 500 MG TAB.ER.24 2 TAB PO BID DIABETES ( Reported) Reason to Stop at ADM: ON ISS Metoprolol Succinate 25 MG TAB 0.5 TAB PO DAILY HEART (Reported) Polyethylene Glycol 3350 (Miralax) 17 GRAM/DOSE POWDER 17 GM PO DAILY PRN CONSTIPATION Sennosides/Docusate Sodium (Senna S Tablet) 8.6 MG-50 MG TABLET 2 TAB PO QPM CONSTIPATION (Reported) Valsartan 80 MG TABLET 1 TAB PO DAILY BP (Reported) Triage Note: 86 Y/O FEMALE BRINA FROM HOME FOR EVAL OF SYNCOPE THIS AM. PER EMS, "FAMILY WAS WITH HER WHEN SHE STOOD UP AND THEN PASSED OUT FOR A FEW SECONDS". EMS STATE PT HAS BEEN AWAKE, ALERT AND ORIENTED IN THEIR CARE. RECENTLY D/[place] FROM REHAB FOR UTI PER EMS. PT C/O "NOT FEELING WELL FOR WEEKS" - C/0 HEADACHE AND INTERMITTENT DIZZINESS. CHANGED INTO GOWN PLACED ON MONITOR AWAITING EVAL Onset: Abrupt Duration: hour(s): Timing: recent history HPI: 12/02/17 86-year-old female presents to the emergency department for syncope. According to the family she was recently discharged back home from [place] and she's been complaining of headache and neck pain and also leg pain bilaterally. Today they tried to move her from one location to the other and get her into a chair and she became unresponsive for a minute and a half. Now she is awake alert and confused (baseline). She has a history of Alzheimer's. (Kai Dhillon DO) Triage Nurses Notes Reviewed? yes (Aaron LEHMAN,Garo Hidalgo) Past History Travel History Traveled to [place] past 21 day No Medical History Any Pertinent Medical History? 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 No (Kai Dhillon DO) Review of Systems Review of Systems Constitutional: Denies: fever. EENTM: Reports: no symptoms. Respiratory: Denies: short of breath. Cardiovascular: Denies: chest pain. GI: Denies: abdominal pain. Genitourinary: Reports: no symptoms. Musculoskeletal: Reports: see HPI. Skin: Denies: rash. Neurological/Psychological: Reports: see HPI. Hematologic/Endocrine: Denies: bruising, bleeding. Immunologic/Allergic: Reports: no symptoms. (Kai Dhillon DO) Physical Exam Physical Exam General Appearance: alert, awake, anxious, moderate distress Head: atraumatic, normal appearance Eyes: Bilateral: normal appearance, PERRL, EOMI. Ears, Nose, Throat: normal pharynx, normal ENT inspection Neck: normal inspection, supple Respiratory: normal breath sounds, chest non-tender, no respiratory distress Cardiovascular: regular rate/rhythm, edema Peripheral Pulses: 4+ radial (R), 4+ radial (L) Gastrointestinal: soft, non-tender Back: normal range of motion Extremities: normal range of motion Neurologic/Psych: no motor/sensory deficits, awake, alert Skin: intact, normal color, warm/dry Core Measures ACS in differential dx? No CVA/TIA Diagnosis: No Sepsis Present: No Sepsis Focused Exam Completed? No (Kai Dhillon DO) Physical Exam Comments: Patient has pain with movement and touching to the left lower extremity. It does appear swollen. We will check ultrasound and x-rays. (Aaron LEHMAN,Garo Hidalgo) Progress Differential Diagnoses I considered the following diagnoses in my evaluation of the patient: [Syncope, dysrhythmia, anemia, electrolyte derangement] Plan of Care: Orders Procedure Date/time Status Discharge Patient 12/03 1300 Active PT Evaluate & Treat 12/03 0021 Active CASE MANAGEMENT CONSULT 12/03 0021 Active Theraputic Activities 15 Min 12/03 UNK Complete MOBILITY GOAL STATUS 12/03 UNK Complete MOBILITY CURRENT STATUS 12/03 UNK Complete PT EVAL LOW COMPLEX 20 MIN 12/03 UNK Complete Heart Healthy Diet 12/[address] in observation 12/02 1909 Active ED Holding Orders 12/02 1909 Active Patient Data 12/02 1909 Active Vital Signs 12/02 1909 Active Code Status 12/02 1909 Active Add-on Test (ER Only) 12/02 1905 Active TROPONIN LEVEL 12/02 1843 Complete Intake & Output 12/02 1227 Active Current Medications Sig/Chaparro Start time Last Medication Dose Stop Time Status Admin Metformin HCl 1,000 MG 0800,1700 12/03 1700 AC (Glucophage) Allopurinol 300 MG DAILY 12/03 0900 AC 12/03 (Zyloprim) 0955 Amlodipine Besylate 7.5 MG DAILY 12/03 09 AC 12/03 (Norvasc) 0955 Aspirin 81 MG DAILY 12/03 09 AC 12/03 (Aspirin) 0955 Atorvastatin Calcium 80 MG DAILY 12/03 09 AC 12/03 (Lipitor) 0955 Clopidogrel Bisulfate 75 MG DAILY 12/03 09 AC 12/03 (Plavix) 0955 Furosemide 20 MG DAILY 12/03 09 AC 12/03 (Lasix) 0955 Losartan Potassium 50 MG DAILY 12/03 09 AC 12/03 (Cozaar) 0955 Metoprolol Succinate 12.5 MG DAILY 12/03 09 AC 12/03 (Toprol XL) 0955 Glipizide 10 MG DAILY AC 12/03 0845 AC 12/03 (Glucotrol XL) 0955 Ciprofloxacin 250 MG BID 12/02 2100 AC 12/03 (Cipro) 12/06 2058 0910 Nitrofurantoin 100 MG BID 12/02 2100 CAN (Macrodantin 50MG Cap) Acetaminophen 1,000 MG ONCE ONE 12/02 1715 CAN (Ofirmev) 12/02 1729 N/A 1 UNIT (No Carrier) Laboratory Tests 12/02/17 1858: Troponin I < 0.01 12/02/17 1457: Urine Color YEL, Urine Clarity HAZY H, Urine pH 6.0, Ur Specific [place] 1.010, Urine Protein NEG, Urine Ketones NEG, Urine Nitrite POS H, Urine Bilirubin NEG, Urine Urobilinogen 0.2, Ur Leukocyte Esterase MOD H, Ur Microscopic SEDIMENT EXAMINED, Urine WBC 3-5 H, Ur Epithelial Cells FEW, Urine Bacteria MANY H, Urine Hemoglobin NEG, Urine Glucose NEG Microbiology 12/02 1457 URINE ROUT: Urine Culture - RES GRAM NEGATIVE RODS (Kai Dhillon DO) Differential Diagnoses I considered the following diagnoses in my evaluation of the patient: Diagnostic Imaging: Viewed by Me: Radiology Read, Ultrasound. Discussed w/RAD: Radiology Read, Ultrasound. Radiology Impression: PATIENT: BAL VARGAS PRESENT AGE: 86 PATIENT ACCOUNT NO: [id number] : 32 LOCATION: [facility] ORDERING PHYSICIAN: Garo Walker MD SERVICE DATE: 12/02/17 EXAM TYPE: RAD - XRY-HIP 2-3 VIEWS, LEFT EXAMINATION: XR HIP, LEFT CLINICAL INFORMATION: Pain. Question fracture. COMPARISON: No relevant prior imaging. TECHNIQUE: Two views of the left hip. FINDINGS: There is no evidence of acute fracture and no dislocation. There is slight narrowing of the joint space and sclerotic changes of the acetabular roof. Soft tissues are unremarkable. Visualized portions of the left hemipelvis are grossly normal. IMPRESSION: Mild degenerative changes of the left hip. No evidence of acute fracture and no dislocation. DICTATED BY: Jose Peacock MD DATE/TIME DICTATED:12/02/171610 WASHROOM CLEANER:VALDOVINOS DATE/TIME TRANSCRIBED:12/02/171610 CONFIDENTIAL, DO NOT COPY WITHOUT APPROPRIATE AUTHORIZATION. <Electronically signed in Other Vendor System> SIGNED BY: Jose Peacock MD 12/02/171614, PATIENT: BAL VARGAS PRESENT AGE: 86 PATIENT ACCOUNT NO: [id number] : 32 LOCATION: [facility] ORDERING PHYSICIAN: Garo Walker MD SERVICE DATE: 12/02/17 EXAM TYPE: RAD - XRY-KNEE COMPLETE LEFT EXAMINATION: XR KNEE, LEFT CLINICAL INFORMATION: Pain. Question fracture. COMPARISON: Left knee radiographs 05/16/2017. TECHNIQUE: Four views of the left knee. 5 images total. FINDINGS: There is narrowing of the medial, lateral, and patellofemoral compartments with associated hypertrophic marginal osteophyte formation. There is medial and lateral meniscal chondrocalcinosis. Small suprapatellar joint effusion is visualized on lateral projection. No evidence of acute fracture and no dislocation. Mild diffuse demineralization of bone. IMPRESSION: Diffuse demineralization of bone. No clear evidence of acute fracture and no dislocation. Advanced tricompartmental disease. Medial and lateral meniscal chondrocalcinosis. Small joint effusion. DICTATED BY: Jose Peacock MD DATE/TIME DICTATED:12/02/171611 WASHROOM CLEANER:VALDOVINOS DATE /TIME TRANSCRIBED:12/02/171611 CONFIDENTIAL, DO NOT COPY WITHOUT APPROPRIATE AUTHORIZATION. <Electronically signed in Other Vendor System> SIGNED BY: Jose Peacock MD 12/02/171618, PATIENT: BAL VARGAS PRESENT AGE: 86 PATIENT ACCOUNT NO: [id number] : 32 LOCATION: [facility] ORDERING PHYSICIAN: Kai Dhillon DO SERVICE DATE: 12/02/17 EXAM TYPE: CAT - CT CERV SPINE WO IV CONTRAST; CT HEAD WO IV CONTRAST EXAMINATION: CT HEAD WITHOUT CONTRAST CT CERVICAL SPINE WITHOUT CONTRAST CLINICAL INFORMATION: Fall and neck pain. Assess for intracranial bleed. COMPARISON: MRI scan of the brain 10/29/2017, CT scan of the head 10/28/[address] scan of the cervical spine 07/09/2017. TECHNIQUE: Multidetector CT imaging of the head and cervical spine was performed without the use of intravenous contrast. Coronal and sagittal reformatted images were generated at the technologist workstation. DLP: 937.71 mGy-cm. FINDINGS: CT head: There is no evidence of acute intracranial hemorrhage or territorial infarction. No abnormal mass-effect or midline shift is seen. Cuello to white matter differentiation is well preserved. No extra-axial fluid collections are identified. The ventricles and sulci commensurately prominent consistent with moderate diffuse volume loss. There are extensive areas of low attenuation in the periventricular and subcortical white matter, consistent with sequelae of chronic microvascular disease. There are lacunar infarcts in the right thalamus and left basal ganglia. The study redemonstrates the sequelae of the chronic infarct in the right occipital lobe with gliosis and encephalomalacia. There is moderate ex vacuo dilatation of the trigone and the temporal occipital horns of the right lateral ventricle. There are no acute osseous findings. There are severe arthropathic changes of the left temporomandibular joint. There are atheromatous calcifications of the cavernous internal carotid arteries bilaterally. There are no large scalp contusions or hematomas. There may be a small contusion over the right frontal region toward the vertex. The mastoid air cells are underpneumatized, but are well-aerated. There is mild opacification in the posterior right sphenoid sinus. The visualized other paranasal sinuses are well- aerated. CT cervical spine: Overall, there is straightening of the cervical lordosis. There are mild degenerative anterolistheses of C4 on C5 and C7 on T1. Intervertebral disc height is narrowed at multiple levels, most severely at C5- C6. There are degenerative endplate contour changes with sclerosis and marginal osteophytes. No acute fractures are demonstrated. The lateral masses of C1 and C2 are normally aligned, and the dens is intact. There is a posterior disc protrusion with calcification of the annulus at C3-C4. The atlantooccipital articulations are normal. The left lobe of the thyroid gland is markedly enlarged, extending into the superior mediastinum. It has heterogenous density with calcifications and measures approximately 4.8 x 4.2 by by 7.5 cm. It is not significantly changed compared to the prior study. The trachea is deviated to the right, with minimal narrowing of the caliber, similar compared to prior imaging. The visualized lung apices are well-aerated. IMPRESSION: 1. There are no acute bleeds or territorial infarcts. There are no acute fractures. There appears to be a small scalp contusion in the high right frontal region. 2. There is diffuse volume loss and there are chronic microvascular ischemic changes and lacunar infarcts, similar compared to prior imaging. There is an old infarct in the posterior right occipital lobe. 3. There are no acute fractures or subluxations in the cervical spine. There are multilevel spondylitic changes, seen on prior imaging. 4. 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 DICTATED BY: Fede Gray MD DATE/ TIME DICTATED:12/02/171325 WASHROOM CLEANER:MARIA T DATE/TIME TRANSCRIBED: 12/02/171325 CONFIDENTIAL, DO NOT COPY WITHOUT APPROPRIATE AUTHORIZATION. < Electronically signed in Other Vendor System> SIGNED BY: Fede Gray MD [id number], PATIENT: BAL VARGAS PRESENT AGE: 86 PATIENT ACCOUNT NO: [id number] : 32 LOCATION: [facility] ORDERING PHYSICIAN: Garo Walker MD SERVICE DATE: 12/02/17 EXAM TYPE: US - US-DUPLEX VENOUS EXTREM UNI EXAMINATION: US TRIPLEX LOWER EXTREMITY, LEFT CLINICAL INFORMATION: Swelling. COMPARISON: None TECHNIQUE: Color-flow triplex imaging with spectral analysis and compression Doppler were performed on the lower extremity. FINDINGS: Respiratory variation, normal compression and augmented flow are noted throughout the lower extremity. The visualized common femoral vein, superficial femoral vein, profunda femoral vein, popliteal vein and midcalf peroneal and posterior tibial venous segments show no evidence of deep venous thrombosis. There is no Munoz's cyst. IMPRESSION: No evidence of deep venous thrombosis involving the lower extremity. DICTATED BY: Wilberto Castro MD DATE/TIME DICTATED:12/02/171745 WASHROOM CLEANER:MARIA T DATE/TIME TRANSCRIBED:12/02/171745 CONFIDENTIAL, DO NOT COPY WITHOUT APPROPRIATE AUTHORIZATION. <Electronically signed in Other Vendor System> SIGNED BY: Wilberto Castro MD 12/02/17 1838 Initial ED EKG: SR, NSSTT CHANGES Prior EKG: unchanged Hand-Off Endorsed To: Jose C Myrick MD Endorsed Time: 190 Pending: other (CASE MANAGEMENT) Comments: Patient family have been updated on lateral x-ray results. Ultrasound is still pending. Patient will be given Tylenol with Codeine. Patient was recently discharged for short-term rehabilitation and she may require to go back for pain control. (Garo Walker MD) Hand-Off Endorsed To: Garo Walker MD Endorsed Time: 07 Pending: consult (PT / case mgmt), Xray (Jose C Myrick MD) Departure Departure Condition: Stable Referrals: Rao Mares MD (PCP/Family) Departure Forms: Customer Survey General Discharge Information Comments 12/02/17 2 PM The patient was signed out to Dr. Walker, for reevaluation, serial troponins, consider PT and case management consultation. (Kai Dhillon DO) Departure Disposition: ACUTE REHAB FACILITY Clinical Impression Primary Impression: Syncope Secondary Impressions: Left leg pain (Garo Walker MD) Critical Care Note Critical Care Note Critical Care Time: non-applicable (Garo Walker MD) ED Attending Observation Initial Observation Note: I have seen and personally examined BAL VARGAS on 12/02/17 at 1911. I agree with the current emergency department documentation. The disposition (admission or discharge) is uncertain at this time, she needs a period of observation for the following reason(s): [Patient will need close monitoring during her slight elevation in her temperature. Patient will need pain control for her leg. Patient will be started on antibiotics. Unsure if the patient will require admission, discharged to short-term rehabilitation or she will be stable to go home.] The ED Nurse caring for this patient has been personally informed as to what the patient is being observed for. Observation Re-Evaluation: I have reevaluated BAL VARGAS on 12/03/17 at 0810. The physical findings that support the continued need to observe this patient include [patient has been seen by physical therapy and they recommend going back to short-term rehabilitation.]. Observation Discharge: I have reevaluated BAL VARGAS on 12/03/17 at 1259. The patient is: (): Stable for discharge (): To be admitted to Nursing Floor (): To be placed in Observation on Nursing Floor ([X]): For transfer to other facility The patient was being observed for [WEAKNESS, LEG PAIN] As a result of that observation, I have determined [TRANSFER TO [facility]]. (Aaron LEHMAN,Garo Hidalgo)
[2017-12-02 12:38] LABS: ABSOLUTE BASOPHIL COUNT 0.1 /CUMM (0.0-0.2); ABSOLUTE EOSINOPHIL COUNT 0 /CUMM (0.0-0.7); ABSOLUTE GRANULOCYTE CT 13.3 /CUMM (1.4-6.5); ABSOLUTE LYMPH COUNT 1.6 /CUMM (1.2-3.4); ABSOLUTE MONOCYTE COUNT 0.6 /CUMM (0.10-0.60); BASOPHIL % 0.4 % (0.0-2.0); EOSINOPHIL % 0.2 % (0-5); HEMATOCRIT 35.3 % (37-47); MEAN CORPUSCULAR HGB 28.8 PG (27.0-31.0); MEAN CORPUSCULAR HGB CONC 33.2 G/DL (33.0-37.0); MEAN CORPUSCULAR VOLUME 86.6 FL (81.0-99.0); MEAN PLATELET VOLUME 8.4 FL (7.4-10.4); RBC DISTRIBUTION WIDTH 16.5 % (11.5-14.5); RED BLOOD CELL CT 4.08 /CUMM (4.20-5.40); WHITE BLOOD CELL COUNT 15.6 /CUMM (4.8-10.8)
[2017-12-02 13:02] LABS: GRANULOCYTE % 85.6 % (42.2-75.2); PLATELET COUNT 308 /CUMM (130-400)
--- NOTE | 2017-12-02 13:43 | CT SCAN REPORT ---
EXAMINATION: CT HEAD WITHOUT CONTRAST CT CERVICAL SPINE WITHOUT CONTRAST CLINICAL INFORMATION: Fall and neck pain. Assess for intracranial bleed. COMPARISON: MRI scan of the brain 10/29/2017, CT scan of the head 10/28/[address] scan of the cervical spine 07/09/2017. TECHNIQUE: Multidetector CT imaging of the head and cervical spine was performed without the use of intravenous contrast. Coronal and sagittal reformatted images were generated at the technologist workstation. DLP: 937.71 mGy-cm. FINDINGS: CT head: There is no evidence of acute intracranial hemorrhage or territorial infarction. No abnormal mass-effect or midline shift is seen. Cuello to white matter differentiation is well preserved. No extra-axial fluid collections are identified. The ventricles and sulci commensurately prominent consistent with moderate diffuse volume loss. There are extensive areas of low attenuation in the periventricular and subcortical white matter, consistent with sequelae of chronic microvascular disease. There are lacunar infarcts in the right thalamus and left basal ganglia. The study redemonstrates the sequelae of the chronic infarct in the right occipital lobe with gliosis and encephalomalacia. There is moderate ex vacuo dilatation of the trigone and the temporal occipital horns of the right lateral ventricle. There are no acute osseous findings. There are severe arthropathic changes of the left temporomandibular joint. There are atheromatous calcifications of the cavernous internal carotid arteries bilaterally. There are no large scalp contusions or hematomas. There may be a small contusion over the right frontal region toward the vertex. The mastoid air cells are underpneumatized, but are well-aerated. There is mild opacification in the posterior right sphenoid sinus. The visualized other paranasal sinuses are well-aerated. CT cervical spine: Overall, there is straightening of the cervical lordosis. There are mild degenerative anterolistheses of C4 on C5 and C7 on T1. Intervertebral disc height is narrowed at multiple levels, most severely at C5-C6. There are degenerative endplate contour changes with sclerosis and marginal osteophytes. No acute fractures are demonstrated. The lateral masses of C1 and C2 are normally aligned, and the dens is intact. There is a posterior disc protrusion with calcification of the annulus at C3-C4. The atlantooccipital articulations are normal. The left lobe of the thyroid gland is markedly enlarged, extending into the superior mediastinum. It has heterogenous density with calcifications and measures approximately 4.8 x 4.2 by by 7.5 cm. It is not significantly changed compared to the prior study. The trachea is deviated to the right, with minimal narrowing of the caliber, similar compared to prior imaging. The visualized lung apices are well-aerated. IMPRESSION: 1. There are no acute bleeds or territorial infarcts. There are no acute fractures. There appears to be a small scalp contusion in the high right frontal region. 2. There is diffuse volume loss and there are chronic microvascular ischemic changes and lacunar infarcts, similar compared to prior imaging. There is an old infarct in the posterior right occipital lobe. 3. There are no acute fractures or subluxations in the cervical spine. There are multilevel spondylitic changes, seen on prior imaging. 4. 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
--- NOTE | 2017-12-02 16:15 | RADIOLOGY REPORT ---
EXAMINATION: XR HIP, LEFT CLINICAL INFORMATION: Pain. Question fracture. COMPARISON: No relevant prior imaging. TECHNIQUE: Two views of the left hip. FINDINGS: There is no evidence of acute fracture and no dislocation. There is slight narrowing of the joint space and sclerotic changes of the acetabular roof. Soft tissues are unremarkable. Visualized portions of the left hemipelvis are grossly normal. IMPRESSION: Mild degenerative changes of the left hip. No evidence of acute fracture and no dislocation.
--- NOTE | 2017-12-02 16:19 | RADIOLOGY REPORT ---
EXAMINATION: XR KNEE, LEFT CLINICAL INFORMATION: Pain. Question fracture. COMPARISON: Left knee radiographs 05/16/2017. TECHNIQUE: Four views of the left knee. 5 images total. FINDINGS: There is narrowing of the medial, lateral, and patellofemoral compartments with associated hypertrophic marginal osteophyte formation. There is medial and lateral meniscal chondrocalcinosis. Small suprapatellar joint effusion is visualized on lateral projection. No evidence of acute fracture and no dislocation. Mild diffuse demineralization of bone. IMPRESSION: Diffuse demineralization of bone. No clear evidence of acute fracture and no dislocation. Advanced tricompartmental disease. Medial and lateral meniscal chondrocalcinosis. Small joint effusion.
--- NOTE | 2017-12-02 18:38 | ULTRASOUND REPORT ---
EXAMINATION: US TRIPLEX LOWER EXTREMITY, LEFT CLINICAL INFORMATION: Swelling. COMPARISON: None TECHNIQUE: Color-flow triplex imaging with spectral analysis and compression Doppler were performed on the lower extremity. FINDINGS: Respiratory variation, normal compression and augmented flow are noted throughout the lower extremity. The visualized common femoral vein, superficial femoral vein, profunda femoral vein, popliteal vein and midcalf peroneal and posterior tibial venous segments show no evidence of deep venous thrombosis. There is no Munoz's cyst. IMPRESSION: No evidence of deep venous thrombosis involving the lower extremity.
--- NOTE | 2017-12-03 08:06 | RADIOLOGY REPORT ---
EXAMINATION: XR PORTABLE CHEST CLINICAL INFORMATION: Fever. COMPARISON: Several prior chest x-rays, most recent of which is dated 10/24/2017. TECHNIQUE: Portable AP semierect view of the chest was obtained. FINDINGS: The cardiomediastinal silhouette is enlarged, unchanged. Tracheal deviation towards the right side is seen with superior mediastinal soft tissue fullness noted, unchanged. 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 Low lung volumes are seen with mild bibasilar subsegmental atelectasis. No focal consolidation, definite effusion or pneumothorax is seen. Indistinctness of the left CP angle is most likely related to overlapping soft tissues rather than a pleural fluid collection. IMPRESSION: 1. Unchanged appearance of the chest with low lung volumes and mild bibasilar subsegmental atelectasis noted. 2. No new superimposed focal pulmonary process is seen. 3. 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
[2017-12-03 10:45] VITALS: BP 122/62
== END 2017-12-03 16:00 ==
LOC: ERH 11:12 → ERHI 19:10
PROVIDERS: Emergency Medicine
DX: R55 Syncope and collapse (principal); G30.9 Alzheimer's disease, unspecified; F02.80 Dementia in other diseases classified elsewhere, unspecified severity, without behavioral disturbance, psychotic disturbance, mood disturbance, and anxiety; Z79.82 Long term (current) use of aspirin; E78.5 Hyperlipidemia, unspecified; I11.0 Hypertensive heart disease with heart failure; I50.32 Chronic diastolic (congestive) heart failure; J44.9 Chronic obstructive pulmonary disease, unspecified; M79.605 Pain in left leg; E11.9 Type 2 diabetes mellitus without complications; Z79.84 Long term (current) use of oral hypoglycemic drugs; R32 Unspecified urinary incontinence; Z91.81 History of falling
CPT/HCPCS: 71045; 73502-LT; 73562-LT; 81001; 87086; 93005; 93010; 97161-GP; 97530-GP; G8978-GP; G8979-GP; J0131; J3490